=== PATIENT | male | born 1960 | race Caucasian/White ===

== ENCOUNTER 2022-12-08 08:26 | Outpatient (OUT) | payer BC, MEDICARE, SELFPAY ==
--- NOTE | 2022-12-08 07:54 | P.CN_ITS ---
Consult Note: HPI Data of Consult Patient: known to practice within the last 3 years Requesting Physician: Ashley Arroyo NP Primary Care Provider: MARIAJOSE GAY Consult Narrative Reason for consult: chronic knee and shoulder osteoarthritis Narrative: Brian Restrepo a pleasant 62 year old male presents for follow up on chronic bilateral knee and shoulder pain (R>L). Patient continues to have severe pain 7/10 in bilateral knees and right shoulder. Patient has failed PT as it causes an increase in his pain, is not a surgical candidate due to weight and finances, and has been denied Durolane knee injections by his insurance. Patient is seeking alternative pain relief measures as his pain is not relieved by conservative measures and current medication regimen. Patient is following with lymphedema clinic for BLE lymphedema. Patient denies current or recent infection, no cellulitis. Does have bandages to BLE. cc:: CC: Ashley Arroyo NP Review of Systems ROS Status of ROS 10 or more systems reviewed and unremarkable except as noted in history and below Musculoskeletal Reports: extremity pain, limited range of motion and joint swelling PFSH [facility] Medical History (Updated 12/08/22 @ 09:16 by Ashley Arroyo NP) Meds Home Medications and Allergies Home Medications Medication Instructions Recorded Confirmed Type naloxone 4 mg/actuation nasal 4 mg intranasal Q2M PRN opioid 12/08/22 Rx spray (Narcan) overdose #2 ea oxycodone-acetaminophen 7.5 mg-325 1 tab PO BID PRN pain #60 tabs 12/08/22 Rx mg tablet (Percocet) Exam Constitutional Documenting provider has reviewed patient's vital signs: yes Common normals: no apparent distress, oriented x3, healthy appearing, alert and well nourished Exam limitations: physical limitations (utilizes cane) General appearance: cooperative Nutritional appearance: obese [facility] Common normals: normocephalic, hearing grossly normal bilaterally and moist oral mucous membranes Head and scalp: normocephalic Eye Common normals: PERRL Pupil: PERRL Neck & C-Spine Common normals: full ROM General: normal visual inspection Chest Common normals: inspection of chest normal Respiratory Common normals: normal respiratory effort, no retractions and no use of accessory muscles Back & Pelvis Thoracic spine/upper back: ROM limited and pain with ROM Lumbar spine/lower back: ROM limited and pain with ROM Extremity Right upper extremity: shoulder joint (severely limited ROM to right shoulder, decrease in strength. ) Right lower extremity: knee joint (moderate limitation in ROM, enlarged joint. no redness/warmth/infection.) and lower leg (lymphedema ) Left lower extremity: knee joint (moderate limitation in ROM, enlarged joint. no redness/warmth/infection) and lower leg (lymphedema ) Other: severe osteoarthritis to bilateral knees and right shoulder per xray imaging, patient has consistent exam findings as listed above. Pain with weightbearing and nonweight bearing activities, limited ROM, enlarged joints Neuro Common normals: oriented x3, CN's II-XII intact bilaterally, moves all extremities, no focal motor deficits, no sensory deficits noted and deep tendon reflexes 2+ bilaterally Sensorium/orientation: alert Gait (neuro): antalgic Motor exam: strength abnormal (3/5 in BLE 3/5 in RUE 4/5 LUE) Psych Common normals: mental status grossly normal, thought process normal, cooperative, affect normal, speech normal and activity/motor behavior normal Speech: normal speech Thought process: normal thought process Assessment and Plan Assessment and Plan (1) Knee osteoarthritis: Assessment and Plan: bilateral genicular nerve blocks working towards bilateral thermal RFA of genicular nerves (2) Chronic pain syndrome: Assessment and Plan: Avoid NSAIDs with history of renal disease and on plavix (3) Obesity: Assessment and Plan: The patient was counseled that proper dietary changes and consistent participation in a home exercise plan can lead to weight loss. Weight loss can help to improve functionality in patients with chronic pain.? (4) Chronic prescription opiate use: Assessment and Plan: patient was taking oxycodone 5mg BID PRN for pain with mild relief. Patient reports these medications help him to be active with mild pain relief. Patient feels this current medication is no longer benefitting him as well as previously, alternatives discussed. Will change to oxycodone-acetaminophen 7.5- 325mg BID PRN for pain. Discussed and prescribed naloxone. I feel these medications are improving the patient's quality of life and allow them to tolerate activities of daily living as well as participate in recreational activity.? The patient does not report intolerable side effects. The patient is NOT opioid naive and non-pharmacologic and non-opioid treatment has failed to significantly relieve the patient's pain and improve functionality. The patient has a diagnosis that is related to a somatic or visceral pain etiology.? I reviewed with the patient the potential risks and side effects with the use of? opioid medications including but not limited to respiratory depression,? sedation, and even . I verified the patient has access to naloxone should? these effects occur. I advised the patient to avoid the use of any other? sedation substances including alcohol, THC, and benzodiazepines while? taking opioid medications due to the risk of compounding side effects and? detrimental outcomes. I reviewed the [employer], pain treatment agreement, urine? drug screen, and opioid start talking forms. The patient was advised to let? their family know they had Naloxone in case they would need to administer? the medication.? (5) Muscle spasm: Assessment and Plan: continue zanaflex 4mg TID Plan Patient has had >3 months of chronic bilateral knee pain failing conservative pain measures and not a candidate for NSAIDs due to renal disease and plavix, failed PT as it has increased his pain, is not a candidate for surgery due to weight and finances, and has been historically denied Durolane knee injections. Discussed risks vs benefits of genicular NB in hopes of RFA. Patient would like to proceed with bilateral genicular NB and work towards a thermal RFA. f/u after nerve block
== END 2022-12-08 08:27 | disposition home or self-care (01) ==
PROVIDERS: PCP Nurse Practitioner Family; Visit Provider Nurse Practitioner
DX: M17.0 Bilateral primary osteoarthritis of knee (principal); G89.4 Chronic pain syndrome; E66.9 Obesity, unspecified; Z79.899 Other long term (current) drug therapy
CPT/HCPCS: G0463

== ENCOUNTER 2022-12-12 14:42 | Outpatient (OUT) | payer BC, MEDICARE, SELFPAY | END 2022-12-12 14:43 | disposition home or self-care (01) | LOC: WC 14:42 | PROVIDERS: PCP Nurse Practitioner Family; Visit Provider Physician Assistant | DX: S80.822A Blister (nonthermal), left lower leg, initial encounter (principal); S80.821A Blister (nonthermal), right lower leg, initial encounter; R60.0 Localized edema; L97.812 Non-pressure chronic ulcer of other part of right lower leg with fat layer exposed; I87.313 Chronic venous hypertension (idiopathic) with ulcer of bilateral lower extremity; L97.822 Non-pressure chronic ulcer of other part of left lower leg with fat layer exposed | CPT/HCPCS: G0463 ==

== ENCOUNTER 2022-12-12 15:48 | Outpatient (OUT) | payer BC, MEDICARE, SELFPAY ==
[2022-12-12 16:05] LABS: Hematocrit 29.1 % (42.0-54.0); Hemoglobin 8.9 g/dL (14.0-18.0)
[2022-12-12 16:07] LABS: Bilirubin Urine NEGATIVE (NEGATIVE); Blood Urine NEGATIVE (NEGATIVE); Clarity Urine CLEAR (CLEAR); Color Urine YELLOW (YELLOW); Glucose Urine UA NEGATIVE (NEGATIVE); Ketones Urine NEGATIVE (NEGATIVE); Leukocyte Esterase Urine NEGATIVE (NEGATIVE); Nitrite Urine NEGATIVE (NEGATIVE); Protein Urine NEGATIVE (NEG/TRACE); Urobilinogen Urine 0.2 EU/dL (0.2-1.0)
[2022-12-12 16:25] LABS: Creatinine Urine Random 113.09 mg/dL (20.00-300.00); Protein Creatinine Ratio Urine 0.24; Total Protein Urine Random 27.2 mg/dL (<=11.9)
[2022-12-12 16:33] LABS: Alanine Aminotransferase 27 U/L (16-63); Albumin Globulin Ratio 0.8; Albumin Level 3.3 g/dL (3.4-5.0); Alkaline Phosphatase 121 U/L (46-116); Anion Gap 9.7; Aspartate Amino Transferase 16 U/L (15-37); BUN Creatinine Ratio 17.4; Bilirubin Total 0.3 mg/dL (0.2-1.0); Calcium 8.6 mg/dL (8.5-10.1); Carbon Dioxide 26.3 mmol/L (21.0-32.0); Chloride 106 mmol/L (98-107); Estimated GFR (African America 60 (>=60); Estimated GFR (Non-African Ame 49 (>=60); Globulin 4.1 g/dL; Glucose 121 mg/dL (74-106); Magnesium 1.9 mg/dL (1.8-2.4); Percent Iron Saturation 10.5 %; Phosphorus 4.2 mg/dL (2.6-4.7); Sodium 138 mmol/L (136-145); Total Protein 7.4 g/dL (6.4-8.2); Uric Acid 6.3 mg/dL (3.5-7.2)
[2022-12-13 12:09] LABS: PTH, Intact 62 pg/mL (15-65)
== END 2022-12-12 15:49 | disposition home or self-care (01) ==
LOC: LAB 15:48
PROVIDERS: PCP Nurse Practitioner Family; Visit Provider Internal Medicine Nephrology
DX: I12.9 Hypertensive chronic kidney disease with stage 1 through stage 4 chronic kidney disease, or unspecified chronic kidney disease (principal); M10.9 Gout, unspecified; D63.1 Anemia in chronic kidney disease; N40.0 Benign prostatic hyperplasia without lower urinary tract symptoms; E55.9 Vitamin D deficiency, unspecified; E87.6 Hypokalemia; E11.22 Type 2 diabetes mellitus with diabetic chronic kidney disease; R60.0 Localized edema; S80.822A Blister (nonthermal), left lower leg, initial encounter; S80.821A Blister (nonthermal), right lower leg, initial encounter; L97.812 Non-pressure chronic ulcer of other part of right lower leg with fat layer exposed; L97.822 Non-pressure chronic ulcer of other part of left lower leg with fat layer exposed; I87.313 Chronic venous hypertension (idiopathic) with ulcer of bilateral lower extremity
CPT/HCPCS: 36415; 80053; 81003; 82306; 82570; 82607; 82728; 82746; 83540; 83550; 83735; 83970; 84100; 84156; 84550; 85014; 85018; G0463

== ENCOUNTER 2022-12-23 13:46 | Outpatient (RCR) | payer BC, MEDICARE, SELFPAY | END 2023-03-07 15:17 | disposition home or self-care (01) | LOC: OT 13:46 | PROVIDERS: PCP Nurse Practitioner Family; Visit Provider Physician Assistant | DX: I89.0 Lymphedema, not elsewhere classified (principal) | CPT/HCPCS: 97140; 97167; 97535 ==

== ENCOUNTER 2023-01-02 12:50 | Outpatient (OUT) | payer BC, MEDICARE, SELFPAY | END 2023-01-02 12:51 | disposition home or self-care (01) | LOC: WC 12:50 | PROVIDERS: PCP Nurse Practitioner Family; Visit Provider Physician Assistant | DX: R60.0 Localized edema (principal); I87.311 Chronic venous hypertension (idiopathic) with ulcer of right lower extremity; L97.812 Non-pressure chronic ulcer of other part of right lower leg with fat layer exposed | CPT/HCPCS: G0463 ==

== ENCOUNTER 2023-01-09 11:16 | Outpatient (OUT) | payer BC, MEDICARE, SELFPAY | END 2023-01-09 11:17 | disposition home or self-care (01) | LOC: WC 11:17 | PROVIDERS: PCP Nurse Practitioner Family; Visit Provider Physician Assistant | DX: I87.313 Chronic venous hypertension (idiopathic) with ulcer of bilateral lower extremity (principal); L97.812 Non-pressure chronic ulcer of other part of right lower leg with fat layer exposed; L97.822 Non-pressure chronic ulcer of other part of left lower leg with fat layer exposed | CPT/HCPCS: G0463 ==

== ENCOUNTER 2023-01-18 13:36 | Outpatient (OUT) | payer BC, MEDICARE, SELFPAY | END 2023-01-18 13:37 | disposition home or self-care (01) | LOC: WC 13:36 | PROVIDERS: PCP Nurse Practitioner Family; Visit Provider Physician Assistant | DX: I87.311 Chronic venous hypertension (idiopathic) with ulcer of right lower extremity (principal); L97.812 Non-pressure chronic ulcer of other part of right lower leg with fat layer exposed | CPT/HCPCS: G0463 ==

== ENCOUNTER 2023-01-24 06:18 | Day surgery (SDC) | payer BC, MEDICARE, SELFPAY ==
[2023-01-24 06:30] VITALS: BP 125/57; PULSE 63; RESP 14; TEMP 36.9; O2SAT 97
[2023-01-24 07:12] LABS: Glucometer 190 mg/dL (74-106)
[2023-01-24] MEDS: BUPIVACAINE HCL 0.25% PF 25 MG/10 ML VIAL INJ (08:03)
[2023-01-24 08:11] VITALS: BP 128/60; BP 138/60; PULSE 56; PULSE 63; RESP 18; O2SAT 96; O2SAT 97
--- NOTE | 2023-01-24 08:53 | P.ON_ITS ---
Date of procedure: 01/24/23 Pre-op diagnosis: Bilateral knee osteoarthritis Post-op diagnosis: same as pre-op Procedure: Bilateral Genicular Nerve Block PREOPERATIVE DIAGNOSIS: Pain secondary to knee pain, osteoarthritis, osteoarthrosis/degenerative joint disease. POSTOPERATIVE DIAGNOSIS--the same. SOLUTION USED FOR INJECTION: Marcaine 0.25%. IMMEDIATE COMPLICATIONS: None. PROCEDURE: After informed consent was obtained from the patient, brought to the OR, placed in the supine position. Skin overlying the area was prepped and draped in sterile fashion. Subsequently, a 25 gauge spinal needle was inserted over the inferior medial genicular nerve. Landmarks were identified under fluoroscopy. Needle tip advanced until the desired location was achieved, at which point we ruled out intravascular or intraneural needle tip placement. 1 mL of solution was injected. This procedure was performed in a similar fashion at the superior medial and superior lateral branches of the genicular nerve. Throughout the procedure, no indication of intravascular or intraneural needle t ip placement or injection. Post procedurally, needle removed. Patient tolerated the procedure with no complications, transferred to the recovery room in stable condition. She will be discharged home after meeting criteria. Patient informed to keep a pain diary for the first two hours post procedurally. Anesthesia: Local Surgeon: Domi Johnston Condition: stable
== END 2023-01-24 08:19 | disposition home or self-care (01) ==
PROVIDERS: PCP Nurse Practitioner Family; Visit Provider Anesthesiology Pain Medicine
DX: M17.0 Bilateral primary osteoarthritis of knee (principal); Z79.4 Long term (current) use of insulin
CPT/HCPCS: 36415; 64454; 82948

== ENCOUNTER 2023-02-01 08:20 | Outpatient (OUT) | payer BC, MEDICARE, SELFPAY ==
--- NOTE | 2023-02-01 08:34 | P.CN_ITS ---
Consult Note: HPI Data of Consult Patient: known to practice within the last 3 years Requesting Physician: Ashley Arroyo NP Primary Care Provider: MARIAJOSE GAY Consult Narrative Reason for consult: chronic knee and shoulder osteoarthritis Narrative: Brian Restrepo a pleasant 62 year old male presents for follow up on chronic bilateral knee and shoulder pain (R>L). Patient continues to have severe pain 7/10 in bilateral knees and right shoulder. Patient has failed PT as it causes an increase in his pain, is not a surgical candidate due to weight and finances, and has been denied Durolane knee injections by his insurance. Patient is seeking alternative pain relief measures as his pain is not relieved by conservative measures and current medication regimen. Patient is following with lymphedema clinic for BLE lymphedema. Patient denies current or recent infection, no cellulitis. Does have bandages to BLE. Most recently underwent bilateral genicular nerve block with 100% pain relief and functional improvement for 2 hours following the procedure. Patient would like to discuss proceed with thermal RFA of bilateral genicular nerves. cc:: CC: Ashley Arroyo NP Review of Systems ROS Status of ROS 10 or more systems reviewed and unremarkable except as noted in history and below Musculoskeletal Reports: joint pain (bilateral knees) PFSH [facility] Medical History (Updated 01/16/23 @ 10:31 by Gabby Reynoso RN) A-fib ?I48.91 - Unspecified atrial fibrillation (ICD-10) Acid reflux ?K21.9 - Gastro-esophageal reflux disease without esophagitis (ICD-10) Anemia ?D64.9 - Anemia, unspecified (ICD-10) Chronic pain syndrome ?G89.4 - Chronic pain syndrome (ICD-10) COPD (chronic obstructive pulmonary disease) ?J44.9 - Chronic obstructive pulmonary disease, unspecified (ICD-10) Diabetes ?E11.9 - Type 2 diabetes mellitus without complications (ICD-10) Enlarged prostate ?N40.0 - Benign prostatic hyperplasia without lower urinary tract symptoms (ICD-10) Fibromyalgia ?M79.7 - Fibromyalgia (ICD-10) High cholesterol ?E78.00 - Pure hypercholesterolemia, unspecified (ICD-10) Kidney failure ?N19 - Unspecified kidney failure (ICD-10) Sleep apnea ?G47.30 - Sleep apnea, unspecified (ICD-10) Meds Home Medications and Allergies Home Medications Medication Instructions Recorded Confirmed Type naloxone 4 mg/actuation nasal 4 mg intranasal Q2M PRN opioid 12/08/22 01/24/23 Rx spray (Narcan) overdose #2 ea oxycodone-acetaminophen 7.5 mg-325 1 tab PO BID PRN pain #60 tabs 01/03/23 01/24/23 Rx mg tablet (Percocet) albuterol sulfate 90 mcg/actuation 2 puff inhalation Q4H PRN 01/16/23 01/24/23 History aerosol inhaler shortness of breath or wheezing allopurinol 100 mg tablet 100 mg PO DAILY 01/16/23 01/24/23 History apixaban 5 mg tablet (Eliquis) 5 mg PO Q12H 01/16/23 01/24/23 History aspirin 81 mg tablet,delayed 81 mg PO DAILY 01/16/23 01/24/23 History release (Adult Aspirin Regimen) atorvastatin 80 mg tablet (Lipitor) 80 mg PO DAILY 01/16/23 01/24/23 History bumetanide 1 mg tablet 1 mg PO DAILY 01/16/23 01/24/23 History carvedilol 25 mg tablet 37.5 mg PO Q12H 01/16/23 01/24/23 History clonidine HCl 0.2 mg tablet 0.2 mg PO TID 01/16/23 01/24/23 History ferrous sulfate 325 mg (65 mg 325 mg PO BID 01/16/23 01/24/23 History iron) tablet (FeroSul) hydralazine 100 mg tablet 100 mg PO Q8H 01/16/23 01/24/23 History insulin glargine 100 unit/mL 44 unit subcut BID 01/16/23 01/24/23 History subcutaneous solution (Lantus U-100 Insulin) lisinopril 10 mg tablet 20 mg PO DAILY 01/16/23 01/24/23 History montelukast 10 mg tablet 10 mg PO DAILY 01/16/23 01/24/23 History omeprazole 40 mg capsule,delayed 40 mg PO DAILY 01/16/23 01/24/23 History release pregabalin 100 mg capsule 100 mg PO Q12H 01/16/23 01/24/23 History sertraline 100 mg tablet (Zoloft) 100 mg PO DAILY 01/16/23 01/24/23 History tamsulosin 0.4 mg capsule 0.4 mg PO Q24H 01/16/23 01/24/23 History tiotropium 2.5 mcg-olodaterol 2.5 2 puff inhalation Q24H 01/16/23 01/24/23 History mcg/actuation mist for inhalation (Stiolto Respimat) tizanidine 4 mg tablet 4 mg PO Q8H 01/16/23 01/24/23 History vitamin [id number] factor 110 cap 01/16/23 History mg-0.5 mg capsule Allergies Allergy/AdvReac Type Severity Reaction Status Date / Time epoetin [place] [From Procrit] Allergy Verified 01/16/23 10:19 ertapenem [From Invanz] Allergy Verified 01/16/23 10:19 Penicillins Allergy Verified 01/16/23 10:19 Sulfa (Sulfonamide Allergy Verified 01/16/23 10:19 Antibiotics) Exam Constitutional Documenting provider has reviewed patient's vital signs: yes Common normals: no apparent distress, oriented x3, healthy appearing, alert and well nourished Exam limitations: physical limitations (utilizes cane) General appearance: cooperative Nutritional appearance: obese [facility] Common normals: normocephalic, hearing grossly normal bilaterally and moist oral mucous membranes Head and scalp: normocephalic Eye Common normals: PERRL Pupil: PERRL Neck & C-Spine Common normals: full ROM General: normal visual inspection Chest Common normals: inspection of chest normal Respiratory Common normals: normal respiratory effort, no retractions and no use of accessory muscles Back & Pelvis Thoracic spine/upper back: ROM limited and pain with ROM Lumbar spine/lower back: ROM limited and pain with ROM Extremity Right upper extremity: shoulder joint (severely limited ROM to right shoulder, decrease in strength. ) Right lower extremity: knee joint (moderate limitation in ROM, enlarged joint. no redness/warmth/infection.) and lower leg (lymphedema ) Left lower extremity: knee joint (moderate limitation in ROM, enlarged joint. no redness/warmth/infection) and lower leg (lymphedema ) Other: severe osteoarthritis to bilateral knees and right shoulder per xray imaging, patient has consistent exam findings as listed above. Pain with weightbearing and nonweight bearing activities, limited ROM, enlarged joints Neuro Common normals: oriented x3, CN's II-XII intact bilaterally, moves all extremities, no focal motor deficits, no sensory deficits noted and deep tendon reflexes 2+ bilaterally Sensorium/orientation: alert Gait (neuro): antalgic and assistive device used cane Motor exam: strength 5/5 throughout and no movement abnormalities noted Psych Common normals: mental status grossly normal, thought process normal, cooperative, affect normal, speech normal and activity/motor behavior normal Speech: normal speech Thought process: normal thought process Results Additional Findings Additional findings: I have checked an [place]AR[place] report on this patient today and there are no aberrancies noted in the prescribing history.?? A drug screen was completed and reviewed within the last year, and if there has not been a drug screen completed we ordered one today to monitor higher risk, state monitored pain medication use. As part of providing excellent, safe, comprehensive care, the following was completed at our patient's visit: 1. A medication reconciliation and review to ensure accurate knowledge of current/active medications, including asking our patients to inform us about any [id number] medications or herbal remedies/nutritional supplements/alternative remedies. 2. A review to specifically ensure our patients have had annual screening for: elevated body mass index (BMI), tobacco use, screening for depression, and screening for unhealthy alcohol use. When screening is concerning, patients are provided with education and the specific recommendation to discuss the concerning health issue and treatment options with their primary care provider. The patient has had over 3 months of moderate to severe bilateral knee pain with functional impairment and inadequate response to conservative care including NSAIDS (unless there are contraindication such as concurrent blood thinners), multiple oral or topical pain medications, and home exercise program/physical therapy.? The Oswestry Disability Index was completed, and the patient scored a 58%.? The patient noted the following:??moderate pain, pain with ADLs, pain prevents him from lifting heavy weights, can only walk using a cane or walking stick, pain prevents him from standing more than 10 minutes, pain impacts sleep causing less than 4 hours, pain impacts social life and travel We discussed the risks and benefits of the procedure with the patient, and we are NOT planning on using sedation as outlined in the guidelines from Medicare unless there is a documented reason that sedation would be strongly recommended.?? ?The procedure will be completed with fluoroscopic guidance.? Assessment and Plan Assessment and Plan (1) Knee osteoarthritis: (2) Chronic pain syndrome: Assessment and Plan: Avoid NSAIDs with history of renal disease and on plavix (3) Obesity: Assessment and Plan: The patient was counseled that proper dietary changes and consistent participation in a home exercise plan can lead to weight loss. Weight loss can help to improve functionality in patients with chronic pain.? (4) Chronic prescription opiate use: Assessment and Plan: continue percocet 7.5mg BID PRN, will discuss wean or decrease after genicular RFAs I feel these medications are improving the patient's quality of life and allow them to tolerate activities of daily living as well as participate in recreational activity.? The patient does not report intolerable side effects. The patient is NOT opioid naive and non-pharmacologic and non-opioid treatment has failed to significantly relieve the patient's pain and improve functionality. The patient has a diagnosis that is related to a somatic or visceral pain etiology.? I reviewed with the patient the potential risks and side effects with the use of? opioid medications including but not limited to respiratory depression,? sedation, and even . I verified the patient has access to naloxone should? these effects occur. I advised the patient to avoid the use of any other? sedation substances including alcohol, THC, and benzodiazepines while? taking opioid medications due to the risk of compounding side effects and? detrimental outcomes. I reviewed the [employer], pain treatment agreement, urine? drug screen, and opioid start talking forms. The patient was advised to let? their family know they had Naloxone in case they would need to administer? the medication.? (5) Muscle spasm: Assessment and Plan: continue zanaflex 4mg TID Plan Patient has had >3 months of chronic bilateral knee pain failing conservative pain measures and not a candidate for NSAIDs due to renal disease and plavix, failed PT as it has increased his pain, is not a candidate for surgery due to weight and finances, and has been historically denied Durolane knee injections. Proceed with bilateral thermal RFA of genicular nerves under fluoroscopy continue current medications, tolerating well without side effect f/u 1 month after procedure
== END 2023-02-01 08:21 | disposition home or self-care (01) ==
PROVIDERS: PCP Nurse Practitioner Family; Visit Provider Nurse Practitioner
DX: M17.0 Bilateral primary osteoarthritis of knee (principal); G89.4 Chronic pain syndrome; E66.9 Obesity, unspecified; Z79.899 Other long term (current) drug therapy
CPT/HCPCS: G0463

== ENCOUNTER 2023-02-03 11:44 | Outpatient (OUT) | payer BC, MEDICARE, SELFPAY | END 2023-02-03 11:45 | disposition home or self-care (01) | LOC: WC 11:44 | PROVIDERS: PCP Nurse Practitioner Family; Visit Provider Podiatrist Foot & Ankle Surgery | DX: I87.312 Chronic venous hypertension (idiopathic) with ulcer of left lower extremity (principal); L97.822 Non-pressure chronic ulcer of other part of left lower leg with fat layer exposed | CPT/HCPCS: 11042 ==

== ENCOUNTER 2023-02-13 09:13 | Day surgery (SDC) | payer BC, MEDICARE, SELFPAY ==
[2023-02-13 09:30] VITALS: BP 144/53; PULSE 61; RESP 16; TEMP 36.9; O2SAT 94
[2023-02-13 09:41] LABS: Glucometer 125 mg/dL (74-106)
[2023-02-13 10:18] VITALS: BP 120/53; PULSE 65; RESP 18; O2SAT 98
[2023-02-13] MEDS: TRIAMCINOLONE ACETONIDE 40 MG/ML VIAL 80 MG INJ (10:23)
[2023-02-13] MEDS: BUPIVACAINE HCL 0.25% PF 25 MG/10 ML VIAL 4 ML INJ (10:23)
[2023-02-13] MEDS: LIDOCAINE HCL 2% 400 MG/20 ML MDV 30 ML INJ (10:23)
[2023-02-13 10:25] VITALS: BP 140/63; PULSE 64; RESP 18; O2SAT 98
--- NOTE | 2023-02-13 10:42 | W.PM.PROCNOT ---
Date of procedure: 02/13/23 Pre-op diagnosis: Bilateral knee osteoarthritis Post-op diagnosis: same as pre-op Procedure: Procedure: Bilateral genicular nerve radiofrequency ablation Medications: Bupivacaine 0.25% 6cc, kenalog 40mg, lidocaine 2% 15cc The patient was taken to the procedures suite and positioned in the supine position. I explained the details of the procedure to the patient including the risks, benefits and alternatives. We had an informed discussion and the patient verbalized understanding and signed the consent form. All questions were answered appropriately.? ? A 'time out' procedure was performed. The patient was identified, the chart was reviewed, and all allergies were confirmed. Laterality was conducted and marked. The left knee was marked with a sterile marking pen, prepped with Chloraprep, and sterilely draped.? Under fluoroscopic guidance, branches of the genicular nerves were localized.? First the superior medial genicular nerve was localized where the femoral shaft meets the medial epicondyle.? Skin was anesthetized with 1% lidocaine (only the superficial areas far from osseous contact).? The appropriate level of insertion was identified by placing a hemostat over the knee and obtaining an AP view. An 18-gauge 10 mm active tip 3.5 in needle was advanced in a coaxial manner in the lateral view at 1/2 the depth of the femur which was identified by placing forceps over the skin in the lateral view.? This was repeated on the superior lateral genicular nerve where the femoral shaft meets the lateral epicondyle and the inferior medial genicular nerve where the medial tibal shaft meets the tibial epicondyle (needle was advanced to half the depth of the tibia).? Needle placement was confirmed with a lateral view in all sites, after negative aspiration, 1cc of 2% lidocaine was injected at each of the three sites. ? Sensory testing was completed at 0.5 V at each level and motor testing was negative at 1.5 V for all 3 levels. Each of the sites were lesioned for 80 degrees at 80 seconds, with impedance < 500. The probes were subsequently removed and the sites of insertion were bandaged. The same procedure, with the same steps, was then completed on the right side. The patient was taken to the postoperative area and discharged in good condition. Anesthesia: Local Surgeon: Sonja Peguero Pathology: none sent Condition: stable Disposition: no change
== END 2023-02-13 10:51 | disposition home or self-care (01) ==
PROVIDERS: PCP Nurse Practitioner Family; Visit Provider Anesthesiology
DX: M17.0 Bilateral primary osteoarthritis of knee (principal)
CPT/HCPCS: 36415; 36416; 64624; 82948

== ENCOUNTER 2023-03-06 14:20 | Observation (INO) | payer BC, MEDICARE, SELFPAY ==
[2023-03-06] VITALS (13 sets, daily range): BP systolic 127–195; BP diastolic 59–76; PULSE 69–86; RESP 16–20; TEMP 37.1–37.3; O2SAT 79–96; BMI 53.2; BMI 53.6
--- NOTE | 2023-03-06 14:31 | ED_ITS ---
HPI - Back Pain/Injury General Chief Complaint: Back Pain/Injury Stated Complaint: BACK PAIN Time Seen by Provider: 03/06/23 14:21 Source: patient Mode of arrival: ambulance Limitations: no limitations History of Present Illness HPI Narrative: patient is a 62-year-old male with a history of chronic pain who presents to the emergency department by ambulance for a thirty minute history of back spasms across the lumbar spine. Patient was leaving a physical therapy appointment for his knees, he states he usually gets back spasms with physical therapy but today they were significantly worse and did not let up with heat or stretching. He denies any new pain radiation into the lower extremities, no numbness or tingling. He denies any urinary or stool incontinence. He had no falls or injuries. Patient is morbidly obese, he takes Percocet 7.5 mg twice a day chronically for pain. He sees pain management typically for his knees. Related Data Home Medications Medication Instructions Recorded Confirmed albuterol sulfate 90 mcg/actuation 2 puff inhalation Q4H PRN 01/16/23 02/13/23 aerosol inhaler shortness of breath or wheezing allopurinol 100 mg tablet 100 mg PO DAILY 01/16/23 02/13/23 apixaban 5 mg tablet (Eliquis) 5 mg PO Q12H 01/16/23 02/13/23 aspirin 81 mg tablet,delayed 81 mg PO DAILY 01/16/23 02/13/23 release (Adult Aspirin Regimen) atorvastatin 80 mg tablet (Lipitor) 80 mg PO DAILY 01/16/23 02/13/23 bumetanide 1 mg tablet 1 mg PO DAILY 01/16/23 02/13/23 carvedilol 25 mg tablet 37.5 mg PO Q12H 01/16/23 02/13/23 clonidine HCl 0.2 mg tablet 0.2 mg PO TID 01/16/23 02/13/23 ferrous sulfate 325 mg (65 mg 325 mg PO BID 01/16/23 02/13/23 iron) tablet (FeroSul) hydralazine 100 mg tablet 100 mg PO Q8H 01/16/23 02/13/23 insulin glargine 100 unit/mL 44 unit subcut BID 01/16/23 02/13/23 subcutaneous solution (Lantus U-100 Insulin) lisinopril 10 mg tablet 20 mg PO DAILY 01/16/23 02/13/23 montelukast 10 mg tablet 10 mg PO DAILY 01/16/23 02/13/23 omeprazole 40 mg capsule,delayed 40 mg PO DAILY 01/16/23 02/13/23 release pregabalin 100 mg capsule 100 mg PO Q12H 01/16/23 02/13/23 sertraline 100 mg tablet (Zoloft) 100 mg PO DAILY 01/16/23 02/13/23 tamsulosin 0.4 mg capsule 0.4 mg PO Q24H 01/16/23 02/13/23 tiotropium 2.5 mcg-olodaterol 2.5 2 puff inhalation Q24H 01/16/23 02/13/23 mcg/actuation mist for inhalation (Stiolto Respimat) tizanidine 4 mg tablet 4 mg PO Q8H 01/16/23 02/13/23 vitamin C52-unxgjtkeg factor 110 cap 01/16/23 mg-0.5 mg capsule Previous Rx's Medication Instructions Recorded naloxone 4 mg/actuation nasal 4 mg intranasal Q2M PRN opioid 12/08/22 spray (Narcan) overdose #2 ea oxycodone-acetaminophen 7.5 mg-325 1 tab PO BID PRN pain #60 tabs 01/03/23 mg tablet (Percocet) oxycodone-acetaminophen 7.5 mg-325 1 tab PO BID PRN pain #60 tabs 02/01/23 mg tablet (Percocet) oxycodone-acetaminophen 7.5 mg-325 1 tab PO BID PRN pain #60 tabs 03/06/23 mg tablet (Percocet) Allergies Allergy/AdvReac Type Severity Reaction Status Date / Time epoetin [place] [From Procrit] Allergy Verified 02/13/23 09:44 ertapenem [From Invanz] Allergy Verified 02/13/23 09:44 Penicillins Allergy Verified 02/13/23 09:44 Sulfa (Sulfonamide Allergy Verified 02/13/23 09:44 Antibiotics) Review of Systems ROS Constitutional Denies: fever or chills Cardiovascular Denies: chest pain Respiratory Denies: shortness of breath Gastrointestinal Denies: abdominal pain, nausea or vomiting Musculoskeletal Reports: back pain, extremity pain and joint pain; Denies: neck pain Integumentary/Breast Denies: rash Neurological Denies: headache Hematologic/Lymphatic Denies: easy bruising [facility] Medical History (Updated 03/06/23 @ 16:04 by BERNADINE Lima) A-fib ?I48.91 - Unspecified atrial fibrillation (ICD-10) Acid reflux ?K21.9 - Gastro-esophageal reflux disease without esophagitis (ICD-10) Anemia ?D64.9 - Anemia, unspecified (ICD-10) Chronic pain syndrome ?G89.4 - Chronic pain syndrome (ICD-10) COPD (chronic obstructive pulmonary disease) ?J44.9 - Chronic obstructive pulmonary disease, unspecified (ICD-10) Diabetes ?E11.9 - Type 2 diabetes mellitus without complications (ICD-10) Enlarged prostate ?N40.0 - Benign prostatic hyperplasia without lower urinary tract symptoms (ICD-10) Fibromyalgia ?M79.7 - Fibromyalgia (ICD-10) High cholesterol ?E78.00 - Pure hypercholesterolemia, unspecified (ICD-10) Kidney failure ?N19 - Unspecified kidney failure (ICD-10) Sleep apnea ?G47.30 - Sleep apnea, unspecified (ICD-10) Social History Smoking status: Former smoker Exam Narrative Exam Narrative: Gen.: Awake, alert, in no distress Head: Normocephalic, atraumatic ENT: Moist mucous membranes Respiratory: No respiratory distress Back: diffuse tenderness of the lumbar spine, no obvious deformity or step-off. Paraspinal muscle tenderness bilaterally. Extremities: Moves extremities equally, no injuries noted; normal dorsiflexion and plantarflexion of the lower extremities, no decreasse in sensation to the medial thighs Psych: Normal mood and affect Neuro: No focal neuro deficit Skin: Warm, dry, intact Constitutional Vital Signs, click to edit/add: Last Vital Signs Temp 98.8 F 03/06/23 14:22 Pulse 85 03/06/23 14:22 Resp 20 03/06/23 14:22 BP 142/59 H 03/06/23 14:22 Pulse Ox 84 L 03/06/23 14:55 O2 Del Method Room Air 03/06/23 14:55 O2 Flow Rate 3 03/06/23 14:55 Course Vital Signs Vital signs: Vital Signs Temperature 98.8 F 03/06/23 14:22 Pulse Rate 85 03/06/23 14:22 Respiratory Rate 20 03/06/23 14:22 Blood Pressure 142/59 H 03/06/23 14:22 Pulse Oximetry 95 03/06/23 14:22 Oxygen Delivery Method Room Air 03/06/23 14:22 Temperature 98.8 F 03/06/23 14:22 Pulse Rate 85 03/06/23 14:22 Respiratory Rate 20 03/06/23 14:22 Blood Pressure 142/59 H 03/06/23 14:22 Pulse Oximetry 84 L 03/06/23 14:55 Oxygen Delivery Method Room Air 03/06/23 14:55 Oxygen Delivery Flow Rate 3 03/06/23 14:55 MDM - Back Pain/Injury MDM Narrative Medical decision making narrative: patient was treated with Dilaudid, Solu-Medrol, Zofran, Norflex. He did become mildly drowsy and oxygen by nasal cannula was placed for comfort, he has no lethargy or unresponsiveness. He is easily arousable with no tachycardia or abnormal vital signs. He was reevaluated by attending physician, he has no radicular symptoms or focal neuro deficits, the patient continues to be in 10/10 pain. He is unable to ambulate and we are unable to send him home. Contacted Dr. Castaneda, his PCP who will admit the patient for observation and pain control with therapy. Stable at time of admission. CT of the lumbar spine was ordered to rule out significant abnormal pathology. Medical Records Attestation: I reviewed the patient's medical records. Discharge Plan Discharge Chief Complaint: Back Pain/Injury Patient Disposition: Admitted as Observation Time of Disposition Decision: 16:04 Prescriptions / Home Meds: No Action naloxone [Narcan] 4 mg/actuation spray,non-aerosol 4 mg intranasal Q2M PRN (Reason: opioid overdose) Qty: 2 0RF Rx Instructions: spray 1 dose into ONE nostril; alternate nostrils w each dose until help arrives oxycodone-acetaminophen [Percocet] 7.5-325 mg tablet 1 tab PO BID PRN (Reason: pain) Qty: 60 0RF oxycodone-acetaminophen [Percocet] 7.5-325 mg tablet 1 tab PO BID PRN (Reason: pain) Qty: 60 0RF oxycodone-acetaminophen [Percocet] 7.5-325 mg tablet 1 tab PO BID PRN (Reason: pain) Qty: 60 0RF albuterol sulfate 90 mcg/actuation HFA aerosol inhaler 2 puff INHALATION Q4H PRN (Reason: shortness of breath or wheezing) allopurinol 100 mg tablet 100 mg PO DAILY Eliquis 5 mg tablet 5 mg PO Q12H aspirin [Adult Aspirin Regimen] 81 mg tablet,delayed release (DR/EC) 81 mg PO DAILY bumetanide 1 mg tablet 1 mg PO DAILY clonidine HCl 0.2 mg tablet 0.2 mg PO TID carvedilol 25 mg tablet 37.5 mg PO Q12H ferrous sulfate [FeroSul] 325 mg (65 mg iron) tablet 325 mg PO BID tamsulosin 0.4 mg capsule 0.4 mg PO Q24H insulin glargine [Lantus U-100 Insulin] 100 unit/mL solution 44 unit subcut BID atorvastatin [Lipitor] 80 mg tablet 80 mg PO DAILY montelukast 10 mg tablet 10 mg PO DAILY Stiolto Respimat 2.5-2.5 mcg/actuation mist 2 puff INHALATION Q24H vitamin L10-bzpwonayj factor 110-0.5 mg capsule tizanidine 4 mg tablet 4 mg PO Q8H sertraline [Zoloft] 100 mg tablet 100 mg PO DAILY hydralazine 100 mg tablet 100 mg PO Q8H lisinopril 10 mg tablet 20 mg PO DAILY omeprazole 40 mg capsule,delayed release(DR/EC) 40 mg PO DAILY pregabalin 100 mg capsule 100 mg PO Q12H Referrals: MARIAJOSE GAY [Primary Care Provider] - 1 week
[2023-03-06] MEDS: ORPHENADRINE 60 MG/ 2 ML VIAL IV ×2 (14:39→20:28)
[2023-03-06] MEDS: METHYLPREDNISOLONE SOD SUCC PF 125 MG/2 ML VIAL IVP ×2 (14:39→20:28)
[2023-03-06] MEDS: HYDROMORPHONE HCL 1 MG/ML CARTRIDGE IV (14:39)
[2023-03-06] MEDS: ONDANSETRON PF 4 MG/2 ML VIAL IV (14:39)
--- NOTE | 2023-03-06 14:55 | PC.NURSE ---
PT HAS HX SLEEP APNEA. PT RECEIVED 1 MG DILAUDID FOR BACK PAIN AND UPON DOZING OFF MO SPO2 DROPPED AND PT WAS PLACED ON SUPPLEMENTAL O2
--- NOTE | 2023-03-06 15:49 | CT_ITS ---
The [address] [address] Patient Name: DENNY BRADY MRN: [id number] date: 1960 Sex: M Assigned Patient Location: ER Current Patient Location: [place] Accession/Order Number: [id number] Exam Date: 03/06/2023 16:25 Report Date: 03/06/2023 16:52 At the request of: LORIN LORENZO Procedure: CT lumbar spine wo con EXAM: CT lumbar spine wo con HISTORY: low back pain COMPARISON: None. TECHNIQUE: CT lumbar spine without contrast. Multiplanar reformats obtained. The current study utilizes one or more of the following dose-reduction techniques: automated exposure control, iterative reconstruction, and/or manual adjustment of tube current and voltage for size. FINDINGS: Severe motion degradation. Suspect L4 inferior endplate deformity with up to 50% height loss. L1 superior endplate deformity with approximately 20% height loss. No definitive traumatic malalignment, though difficult to exclude given significant motion degradation. Severe lower lumbar facet arthropathy. Nondiagnostic evaluation of the spinal canal and neural foramen. Cholelithiasis. No convincing paravertebral edema. CT/CT lumbar spine wo con IMPRESSION: Severe motion degradation. Repeat examination recommended when patient is better able to tolerate. There is question of an L4 inferior endplate deformity with approximately 50% height loss. Question of an L1 superior endplate deformity with approximately 20% height loss. Electronically authenticated by: TAMMY LINARES Date: 03/06/2023 16:52
[2023-03-06] MEDS: IPRATROPIUM/ALBUTEROL SULFATE 3 ML AMPUL.NEB IH ×2 (17:21→23:19)
--- NOTE | 2023-03-06 17:28 | RESP.RT ---
Pt arrived from ER on 2L NC @ 80%. Increased to 6L and titrated down to 4L
--- NOTE | 2023-03-06 18:07 | CT_ITS ---
The [address] [address] Patient Name: DENNY BRADY MRN: [id number] date: 1960 Sex: M Assigned Patient Location: [place] Current Patient Location: Accession/Order Number: [id number] Exam Date: 03/06/2023 19:35 Report Date: 03/06/2023 20:57 At the request of: BETH HERCULES Procedure: CT angio chest EXAMINATION:CT angio chest INDICATION:hypoxia COMPARISON:None TECHNIQUE:Thin section transaxial slices were acquired through the chest. Coronal and sagittal reconstructed images were reviewed. IV CONTRAST:With FINDINGS: There is image degradation on this examination due to body habitus of the patient and significant breathing motion artifact. LUNGS: Evaluation for subtle nodules is suboptimal. Atelectasis is present in the lower lobes. PLEURAL CAVITY: No sizable pleural effusions are appreciated. MEDIASTINUM: Grossly unremarkable. HEART: No right heart strain. Coronary artery calcifications are present. VASCULAR:Evaluation for pulmonary embolism suboptimal due to breathing motion artifact. There is atherosclerotic plaque in the thoracic aorta. There is no definitive aneurysm of the thoracic aorta. There is breathing motion artifact which is causing image degradation for evaluation of dissection. LYMPH NODES:No obvious mediastinal lymphadenopathy. CHEST WALL/AXILLA: Chest wall and axilla are unremarkable. BONES: Evaluation of the osseous structures and the bony thorax is suboptimal. VISUALIZED UPPER ABDOMEN: Upper abdominal structures are unremarkable. CT/CT angio chest IMPRESSION: This examination of the chest is technically suboptimal due to extensive breathing motion artifact. Evaluation for pulmonary embolism and thoracic aortic dissection is suboptimal. There is minimal bibasilar atelectasis in the lung parenchyma. No sizable parenchymal infiltrates are present. Electronically authenticated by: TORRI ODOM Date: 03/06/2023 20:57
--- NOTE | 2023-03-06 18:20 | RESP.RT ---
Place pt on home cpap unit with 4L 02 bleed in at this time due to pt being SOB. Sp02 95%.
[2023-03-06 18:40] LABS: ABG PCO2 49.1 mmHg (35.0-45.0); Allen Test POSITIVE (POSITIVE); Base Excess ABG 0.9 mmol/L (-2.0-2.0); HCO3 ABG 26.6 mmol/L (22.0-26.0); Oxygen Saturation ABG 96.9 %; PO2 ABG 88.3 mmHg (80.0-100.0); pH ABG 7.342 (7.350-7.450)
[2023-03-06 18:41] LABS: Liters per Minute 4; Puncture Site LR
[2023-03-06 18:58] LABS: Basophils Percent Auto 0.1 % (0.2-2.0); Hematocrit 32.1 % (42.0-54.0); Hemoglobin 9.5 g/dL (14.0-18.0); Immature Granulocytes Abs Auto 0.03 10^3/uL (0.00-0.03); Immature Granulocytes Pct Auto 0.3 % (0.0-0.5); Lymphocytes Absolute Auto 0.2 10^3/uL (1.2-3.8); Mean Corpuscular HGB Conc 29.6 g/dL (29.9-35.2); Mean Corpuscular Volume 87.9 fL (80.0-94.0); Mean Platelet Volume 10.3 fL (9.5-13.5); Monocytes Absolute Auto 0.3 10^3/uL (0.3-0.8); Monocytes Percent Auto 2.8 % (1.7-12.0); Neutrophils Percent Auto 94.8 % (43.0-75.0); Platelet Count 169 10^3/uL (150-450); Red Blood Count 3.65 10^6/uL (4.70-6.10); Red Cell Distribution Width 16.6 % (11.0-15.0); White Blood Count 11.6 10^3/uL (4.0-11.0)
--- NOTE | 2023-03-06 19:00 | P.HP_ITS ---
H&P: HPI History of Present Illness Chief complaint: BACK PAIN INTRACTABLE LOW BACK PAIN Narrative: Patient with a history of low back pain presented to the emergency room with increasing low back pain. Given couple medications in the emergency room which resulted in significant hypoxia. Unable to improve in the emergency room and patient with pain not improved either she was admitted for observation Review of Systems ROS Status of ROS 10 or more systems reviewed and unremarkable except as noted in history and below [facility] Medical History (Updated 03/06/23 @ 16:04 by BERNADINE Lima) A-fib ?I48.91 - Unspecified atrial fibrillation (ICD-10) Acid reflux ?K21.9 - Gastro-esophageal reflux disease without esophagitis (ICD-10) Anemia ?D64.9 - Anemia, unspecified (ICD-10) Chronic pain syndrome ?G89.4 - Chronic pain syndrome (ICD-10) COPD (chronic obstructive pulmonary disease) ?J44.9 - Chronic obstructive pulmonary disease, unspecified (ICD-10) Diabetes ?E11.9 - Type 2 diabetes mellitus without complications (ICD-10) Enlarged prostate ?N40.0 - Benign prostatic hyperplasia without lower urinary tract symptoms (ICD-10) Fibromyalgia ?M79.7 - Fibromyalgia (ICD-10) High cholesterol ?E78.00 - Pure hypercholesterolemia, unspecified (ICD-10) Kidney failure ?N19 - Unspecified kidney failure (ICD-10) Sleep apnea ?G47.30 - Sleep apnea, unspecified (ICD-10) Surgical History (Updated 03/06/23 @ 17:09 by Hui Peralta LPN) History of arthroplasty of right shoulder ?Z96.611 - Presence of right artificial shoulder joint (ICD-10) History of hernia repair ?Z98.890 - Other specified postprocedural states (ICD-10) ?Z87.19 - Personal history of other diseases of the digestive system (ICD-10) History of right hip replacement ?Z96.641 - Presence of right artificial hip joint (ICD-10) Family History (Updated 03/06/23 @ 17:03 by Hui Peralta LPN) Brother Family history of cancer Social History (Updated 03/06/23 @ 17:08 by Hui Peralta LPN) Within the past year, how often did you have a drink containing alcohol: monthly or less Within the past year, how many standard drinks containing alcohol did you have on a typical day: 1 or 2 Within the past year, how often did you have six or more drinks on one occasion: never Total score: 0 Score interpretation: A score less than 4 is consistent with normal alcohol consumption. Smoking status: Former smoker Second hand tobacco smoke exposure: No Non-prescribed substance use: denies use Known occupational exposures/hazards: No Highest level of school completed/degree received: some college, no degree Do you want help with school or training: No Are you now , , , , never or living with a partner: In a typical week, how many times do you talk on the telephone with family, friends, or neighbors: twice per week How often do you get together with friends or relatives: twice per week How often do you attend adventist or taoism services: never Do you belong to any clubs or organizations such as adventist groups unions, [employer] or athletic groups, or school groups: yes Total score: 3 Score interpretation: A score of greater than or equal to 2 indicates the lowest level of social isolation. Little interest or pleasure in doing things: not at all Feeling down, depressed, or hopeless: not at all Feel stressed/tense/nervous/anxious/difficulty sleeping: not at all Due to disability, difficulty making decisions: No Do you think of yourself as: straight/heterosexual Gender Identity: male Meds Home Medications and Allergies Home Medications Medication Instructions Recorded Confirmed Type naloxone 4 mg/actuation nasal 4 mg intranasal Q2M PRN opioid 12/08/22 03/06/23 Rx spray (Narcan) overdose #2 ea albuterol sulfate 90 mcg/actuation 2 puff inhalation Q4H PRN 01/16/23 03/06/23 History aerosol inhaler shortness of breath or wheezing allopurinol 100 mg tablet 100 mg PO DAILY 01/16/23 03/06/23 History apixaban 5 mg tablet (Eliquis) 5 mg PO Q12H 01/16/23 03/06/23 History aspirin 81 mg tablet,delayed 81 mg PO DAILY 01/16/23 03/06/23 History release (Adult Aspirin Regimen) atorvastatin 80 mg tablet (Lipitor) 80 mg PO DAILY 01/16/23 03/06/23 History bumetanide 1 mg tablet 1 mg PO DAILY 01/16/23 03/06/23 History carvedilol 25 mg tablet 37.5 mg PO Q12H 01/16/23 03/06/23 History clonidine HCl 0.2 mg tablet 0.2 mg PO TID 01/16/23 03/06/23 History ferrous sulfate 325 mg (65 mg 325 mg PO BID 01/16/23 03/06/23 History iron) tablet (FeroSul) hydralazine 100 mg tablet 100 mg PO Q8H 01/16/23 03/06/23 History insulin glargine 100 unit/mL 44 unit subcut BID 01/16/23 03/06/23 History subcutaneous solution (Lantus U-100 Insulin) lisinopril 10 mg tablet 20 mg PO DAILY 01/16/23 03/06/23 History montelukast 10 mg tablet 10 mg PO DAILY 01/16/23 03/06/23 History omeprazole 40 mg capsule,delayed 40 mg PO DAILY 01/16/23 03/06/23 History release pregabalin 100 mg capsule 100 mg PO Q12H 01/16/23 03/06/23 History sertraline 100 mg tablet (Zoloft) 150 mg PO DAILY 01/16/23 03/06/23 History tamsulosin 0.4 mg capsule 0.4 mg PO Q24H 01/16/23 03/06/23 History tiotropium 2.5 mcg-olodaterol 2.5 2 puff inhalation Q24H 01/16/23 03/06/23 History mcg/actuation mist for inhalation (Stiolto Respimat) tizanidine 4 mg tablet 4 mg PO QDAY 01/16/23 03/06/23 History vitamin X48-jwhnjvrxm factor 110 1 cap PO DAILY 01/16/23 03/06/23 History mg-0.5 mg capsule oxycodone-acetaminophen 7.5 mg-325 1 tab PO BID PRN pain #60 tabs 02/01/23 03/06/23 Rx mg tablet (Percocet) tizanidine 4 mg tablet 8 mg PO .QHS 03/06/23 03/06/23 History Allergies Allergy/AdvReac Type Severity Reaction Status Date / Time epoetin [place] [From Procrit] Allergy Verified 02/13/23 09:44 ertapenem [From Invanz] Allergy Verified 10/23/23 09:44 Penicillins Allergy Verified 02/13/23 09:44 Sulfa (Sulfonamide Allergy Verified 02/13/23 09:44 Antibiotics) Exam Constitutional Vital Signs, click to edit/add: Last Vital Signs Temp 98.5 F 03/07/23 05:26 Pulse 72 03/07/23 06:00 Resp 18 03/07/23 05:26 BP 155/60 H 03/07/23 05:39 Pulse Ox 94 L 03/07/23 06:00 O2 Del Method CPAP 03/07/23 05:26 O2 Flow Rate 4 03/07/23 05:26 Documenting provider has reviewed patient's vital signs: yes Common normals: apparent distress General appearance: in distress; not comfortable Nutritional appearance: obese Chest Common normals: inspection of chest normal Respiratory Common normals: normal respiratory effort and no use of accessory muscles Cardio Common normals: regular rate, regular rhythm and no murmurs Back & Pelvis Lumbar spine/lower back: ROM limited, pain with ROM, paraspinal muscle tenderness, straight leg raise positive right and straight leg raise positive left; no lumbar spinal tenderness Results Labs Labs: Short CBC 03/06/23 Range/Units 18:47 WBC 11.6 H (4.0-11.0) 10^3/uL Hgb 9.5 L (14.0-18.0) g/dL Hct 32.1 L (42.0-54.0) % Plt Count 169 (150-450) 10^3/uL BMP 03/06/23 03/07/23 18:47 05:24 Sodium 138 138 Potassium 4.6 4.6 Chloride 104 103 Carbon Dioxide 27.2 23.5 BUN 27.0 H 32.0 H Creatinine 1.20 1.20 Glucose 90 166 H Calcium 8.6 8.7 Liver Function 03/06/23 03/07/23 Range/Units 18:47 05:24 Total Bilirubin 0.5 0.5 (0.2-1.0) mg/dL AST 17 18 (15-37) U/L ALT 27 24 (16-63) U/L Alkaline Phosphatase 112 102 (46-116) U/L Albumin 3.3 L 2.9 L (3.4-5.0) g/dL Urine 03/07/23 Range/Units 03:10 Urine Color Yellow (YELLOW) Urine Clarity Clear (CLEAR) Urine pH 5.5 (5.0-9.0) Ur Specific [place] 1.015 (1.005-1.025) Urine Protein 30 A (NEG/TRACE) mg/dL Urine Glucose (UA) Negative (NEGATIVE) mg/dL ABG ABG results: 03/06/23 18:35 ABG pH 7.342 L ABG pCO2 49.1 H ABG pO2 88.3 ABG HCO3 26.6 H ABG O2 Saturation 96.9 ABG Base Excess 0.9 Assessment and Plan Assessment and Plan (1) Low back pain: (2) Muscle spasm: (3) Chronic prescription opiate use: Plan Intractable low back pain-CT scan does show a lot of arthritis. Patient does not describe radiculopathy type pain. He did have positive straight leg raise but only with pain radiating into his back not down his legs. Maintain current medications. Change patient from Dilaudid to morphine as possible reaction to the Dilaudid. Acute hypoxia-possibly secondary to medication use-patient currently on BiPAP and saturations are good we will check CTA of chest to rule out pulmonary embolism. Patient already anticoagulated. Mild leukocytosis but no infectious signs Anemia-likely chronic follow-up as an outpatient Mild elevation in his BNP this may be chronic for him he does have chronic lymphedema as well. For his intractable low pelvic pain since is not radicular in nature continue medications as already prescribed maintain observation status until evaluated by physical therapy
[2023-03-06 19:01] LABS: Erythrocyte Sedimentation Rate 60 mm/hr (<=20)
--- NOTE | 2023-03-06 19:03 | PC.NURSE ---
in to round. Pt took cpap off and dropped down to 79%. Went into room reapplied CPAP Sp02 back to 92 %
[2023-03-06 19:11] LABS: Alanine Aminotransferase 27 U/L (16-63); Albumin Globulin Ratio 0.9; Albumin Level 3.3 g/dL (3.4-5.0); Alkaline Phosphatase 112 U/L (46-116); Anion Gap 11.4; Aspartate Amino Transferase 17 U/L (15-37); BUN Creatinine Ratio 22.5; Bilirubin Total 0.5 mg/dL (0.2-1.0); Calcium 8.6 mg/dL (8.5-10.1); Carbon Dioxide 27.2 mmol/L (21.0-32.0); Chloride 104 mmol/L (98-107); Estimated GFR (African America >60 (>=60); Estimated GFR (Non-African Ame >60 (>=60); Globulin 3.8 g/dL; Glucose 90 mg/dL (74-106); Potassium 4.6 mmol/L (3.5-5.1); Sodium 138 mmol/L (136-145); Total Protein 7.1 g/dL (6.4-8.2)
[2023-03-06 19:13] LABS: Ammonia 14 umol/L (11-32)
[2023-03-06 19:15] LABS: Magnesium 1.7 mg/dL (1.8-2.4)
[2023-03-06 19:20] LABS: C Reactive Protein 4.3 mg/dL (<=1.0); Lactate/Lactic Acid 0.3 mmol/L (0.4-2.0)
[2023-03-06 20:15] LABS: Glucometer 93 mg/dL (74-106)
[2023-03-06] MEDS: KETOROLAC TROMETHAMINE 30 MG/ML VIAL IVP (20:28)
[2023-03-06] MEDS: DIPHENHYDRAMINE HCL 50 MG/ML (1ML) VIAL 25 MG IV (20:28)
[2023-03-06] MEDS: NICOTINE 21 MG PATCH TD (20:29)
[2023-03-06] MEDS: APIXABAN 5 MG TABLET PO (20:29)
[2023-03-06] MEDS: PREGABALIN 100 MG CAPSULE PO (20:29)
[2023-03-06] MEDS: CARVEDILOL 12.5 MG TABLET 37.5 MG PO (20:29)
[2023-03-06] MEDS: FERROUS SULFATE 325 MG TABLET PO (20:29)
--- NOTE | 2023-03-06 21:29 | PC.NURSE ---
RN rounded on patient, he is asleep. Aide completed vital signs and patient still did not wake up
--- NOTE | 2023-03-06 22:28 | PC.NURSE ---
RN rounded on patient after administering medications. Patient very difficult to arouse. Lethargic and only responding with a grunt and raising his eyebrows. Pt did not respond or wake up when vital signs were obtained by the nurse aide. Heart rate is currently 71 and pulse ox is 95% on CPAP with 4 Liters. Patient would not wake up to take 2200 medication, Flomax.
[2023-03-07] VITALS (16 sets, daily range): BP systolic 137–159; BP diastolic 60–76; PULSE 65–87; RESP 18; TEMP 36.8–36.9; O2SAT 92–98
[2023-03-07] MEDS: METHYLPREDNISOLONE SOD SUCC PF 125 MG/2 ML VIAL IVP ×3 (02:24→15:15)
[2023-03-07 03:21] LABS: Bilirubin Urine NEGATIVE (NEGATIVE); Blood Urine NEGATIVE (NEGATIVE); Clarity Urine CLEAR (CLEAR); Color Urine YELLOW (YELLOW); Glucose Urine UA NEGATIVE (NEGATIVE); Ketones Urine 15 mg/dL (NEGATIVE); Leukocyte Esterase Urine NEGATIVE (NEGATIVE); Nitrite Urine NEGATIVE (NEGATIVE); Protein Urine 30 mg/dL (NEG/TRACE); Specific Gravity Urine 1.015 (1.005-1.025); Urobilinogen Urine 0.2 EU/dL (0.2-1.0); pH Urine 5.5 (5.0-9.0)
[2023-03-07 03:27] LABS: RBC Urine 0-2 #/HPF (0-2); WBC Urine 0-2 #/HPF (NONE SEEN)
[2023-03-07 03:28] LABS: Bacteria Urine SMALL #/HPF (NONE SEEN); Cast Seen? NONE SEEN #/LPF (NONE SEEN); Crystals Seen? None Seen #/HPF (None Seen); Mucus Urine NONE SEEN (NONE SEEN); Squamous Epithelial Cell Urine FEW #/LPF (NONE/RARE)
[2023-03-07] MEDS: IPRATROPIUM/ALBUTEROL SULFATE 3 ML AMPUL.NEB IH ×3 (04:15→15:09)
[2023-03-07] MEDS: CLONIDINE HCL 0.2 MG TABLET PO ×2 (05:39→14:48)
[2023-03-07] MEDS: HYDRALAZINE HCL 50 MG TABLET 100 MG PO ×2 (05:39→14:50)
[2023-03-07 06:09] LABS: Alanine Aminotransferase 24 U/L (16-63); Albumin Globulin Ratio 0.8; Albumin Level 2.9 g/dL (3.4-5.0); Alkaline Phosphatase 102 U/L (46-116); Anion Gap 16.1; Aspartate Amino Transferase 18 U/L (15-37); BUN Creatinine Ratio 26.7; Bilirubin Total 0.5 mg/dL (0.2-1.0); Calcium 8.7 mg/dL (8.5-10.1); Carbon Dioxide 23.5 mmol/L (21.0-32.0); Chloride 103 mmol/L (98-107); Estimated GFR (African America >60 (>=60); Estimated GFR (Non-African Ame >60 (>=60); Globulin 3.7 g/dL; Glucose 166 mg/dL (74-106); Potassium 4.6 mmol/L (3.5-5.1); Sodium 138 mmol/L (136-145); Total Protein 6.6 g/dL (6.4-8.2)
[2023-03-07 07:21] LABS: Hematocrit 30.5 % (42.0-54.0); Hemoglobin 9.2 g/dL (14.0-18.0); Immature Granulocytes Abs Auto 0.05 10^3/uL (0.00-0.03); Immature Granulocytes Pct Auto 0.5 % (0.0-0.5); Lymphocytes Absolute Auto 0.6 10^3/uL (1.2-3.8); Lymphocytes Percent Auto 5.3 % (20.5-60.0); Mean Corpuscular HGB Conc 30.2 g/dL (29.9-35.2); Mean Corpuscular Hemoglobin 26.5 pg (25.9-34.0); Mean Corpuscular Volume 87.9 fL (80.0-94.0); Mean Platelet Volume 10.3 fL (9.5-13.5); Monocytes Absolute Auto 0.1 10^3/uL (0.3-0.8); Neutrophils Absolute Auto 9.7 10^3/uL (1.4-6.5); Neutrophils Percent Auto 93.2 % (43.0-75.0); Platelet Count 141 10^3/uL (150-450); Red Blood Count 3.47 10^6/uL (4.70-6.10); Red Cell Distribution Width 16.7 % (11.0-15.0); White Blood Count 10.4 10^3/uL (4.0-11.0)
--- NOTE | 2023-03-07 08:02 | P.PN_ITS ---
Progress Note: Subjective Subjective Interval history: Pain much improved this morning Exam Constitutional Vital Signs, click to edit/add: Last Vital Signs Temp 98.5 F 03/07/23 05:26 Pulse 72 03/07/23 06:00 Resp 18 03/07/23 05:26 BP 155/60 H 03/07/23 05:39 Pulse Ox 94 L 03/07/23 06:00 O2 Del Method CPAP 03/07/23 05:26 O2 Flow Rate 4 03/07/23 05:26 Common normals: no apparent distress Chest Common normals: inspection of chest normal Back & Pelvis Other: Much improved. Less pain on palpation. Progress Note: Objective Labs Labs: Short CBC 03/06/23 03/07/23 Range/Units 18:47 05:24 WBC 11.6 H 10.4 (4.0-11.0) 10^3/uL Hgb 9.5 L 9.2 L (14.0-18.0) g/dL Hct 32.1 L 30.5 L (42.0-54.0) % Plt Count 169 141 L (150-450) 10^3/uL BMP 03/06/23 03/07/23 18:47 05:24 Sodium 138 138 Potassium 4.6 4.6 Chloride 104 103 Carbon Dioxide 27.2 23.5 BUN 27.0 H 32.0 H Creatinine 1.20 1.20 Glucose 90 166 H Calcium 8.6 8.7 Liver Function 03/06/23 03/07/23 Range/Units 18:47 05:24 Total Bilirubin 0.5 0.5 (0.2-1.0) mg/dL AST 17 18 (15-37) U/L ALT 27 24 (16-63) U/L Alkaline Phosphatase 112 102 (46-116) U/L Albumin 3.3 L 2.9 L (3.4-5.0) g/dL Urine 03/07/23 Range/Units 03:10 Urine Color Yellow (YELLOW) Urine Clarity Clear (CLEAR) Urine pH 5.5 (5.0-9.0) Ur Specific [place] 1.015 (1.005-1.025) Urine Protein 30 A (NEG/TRACE) mg/dL Urine Glucose (UA) Negative (NEGATIVE) mg/dL Progress Note: A&P Assessment and Plan (1) Low back pain: (2) Muscle spasm: (3) Chronic prescription opiate use: Plan Intractable low back pain-CT scan does show a lot of arthritis. Patient does not describe radiculopathy type pain. -Pain much improved this morning-physical therapy ordered patient. If ambulating safely later today he will be discharged home in improving condition. Medications see list. Follow-up with PCP within the next week. Acute hypoxia-possibly secondary to medication use-so far off BiPAP this morning his O2 saturations are maintaining Mild leukocytosis but no infectious signs-can monitor as an outpatient no change in symptoms overnight Anemia-likely chronic follow-up as an outpatient Mild elevation in his BNP this may be chronic for him he does have chronic lymphedema as well.-Repeating today.
[2023-03-07] MEDS: INSULIN DETEMIR 300 UNIT/3 ML INSULN.PEN 44 UNIT SUBQ (08:29)
[2023-03-07] MEDS: INSULIN ASPART 300 UNIT/3 ML PEN SUBQ ×2 (08:29→12:55)
[2023-03-07] MEDS: ASPIRIN 81 MG TABLET.DR PO (08:30)
[2023-03-07] MEDS: CARVEDILOL 12.5 MG TABLET 37.5 MG PO (08:30)
[2023-03-07] MEDS: SERTRALINE HCL 100 MG TABLET 150 MG PO (08:30)
[2023-03-07] MEDS: LISINOPRIL 10 MG TABLET 20 MG PO (08:30)
[2023-03-07] MEDS: ALLOPURINOL 100 MG TABLET PO (08:30)
[2023-03-07] MEDS: ATORVASTATIN CALCIUM 40 MG TABLET 80 MG PO (08:30)
[2023-03-07] MEDS: PREGABALIN 100 MG CAPSULE PO (08:30)
[2023-03-07] MEDS: FOLIC ACID/VIT B6/VIT B12 TABLET 1 TAB PO (08:30)
[2023-03-07] MEDS: BUMETANIDE 1 MG TABLET PO (08:30)
[2023-03-07] MEDS: APIXABAN 5 MG TABLET PO (08:30)
[2023-03-07] MEDS: FERROUS SULFATE 325 MG TABLET PO (08:31)
[2023-03-07] MEDS: KETOROLAC TROMETHAMINE 30 MG/ML VIAL IVP ×2 (08:31→14:50)
[2023-03-07] MEDS: OMEPRAZOLE 40 MG CAPSULE.DR PO (08:31)
[2023-03-07] MEDS: MONTELUKAST SODIUM 10 MG TABLET PO (08:31)
[2023-03-07] MEDS: ORPHENADRINE 60 MG/ 2 ML VIAL IV (08:31)
[2023-03-07 11:47] LABS: Glucometer 292 mg/dL (74-106)
--- NOTE | 2023-03-08 15:46 | CM.DCFOLLOWU ---
Pt in ER- being readmitted
== END 2023-03-07 17:06 | disposition home or self-care (01) ==
LOC: ER 16:04 → MS 16:40
PROVIDERS: Admitting Provider Family Medicine; Emergency Provider Emergency Medicine; PCP Nurse Practitioner Family; Visit Provider Family Medicine
DX: M54.50 Low back pain, unspecified (principal); M62.830 Muscle spasm of back; R09.02 Hypoxemia; D72.829 Elevated white blood cell count, unspecified; R79.89 Other specified abnormal findings of blood chemistry; D64.9 Anemia, unspecified; M47.816 Spondylosis without myelopathy or radiculopathy, lumbar region; I48.91 Unspecified atrial fibrillation; E66.01 Morbid (severe) obesity due to excess calories; K21.9 Gastro-esophageal reflux disease without esophagitis; G89.4 Chronic pain syndrome; N40.0 Benign prostatic hyperplasia without lower urinary tract symptoms; M79.7 Fibromyalgia; E78.00 Pure hypercholesterolemia, unspecified; E11.9 Type 2 diabetes mellitus without complications; Z68.43 Body mass index [BMI] 50.0-59.9, adult; G47.30 Sleep apnea, unspecified; R60.0 Localized edema; L97.812 Non-pressure chronic ulcer of other part of right lower leg with fat layer exposed; I87.313 Chronic venous hypertension (idiopathic) with ulcer of bilateral lower extremity; L97.822 Non-pressure chronic ulcer of other part of left lower leg with fat layer exposed; Z96.611 Presence of right artificial shoulder joint; Z79.01 Long term (current) use of anticoagulants; Z79.4 Long term (current) use of insulin; Z79.899 Other long term (current) drug therapy; Z79.82 Long term (current) use of aspirin; Z87.891 Personal history of nicotine dependence; Z98.890 Other specified postprocedural states; Z96.641 Presence of right artificial hip joint
CPT/HCPCS: 36415; 36600; 71275; 72131; 80053; 81001; 82140; 82805; 82948; 83605; 83690; 83735; 83880; 85025; 85652; 86140; 87070; 94640; 94667; 94668; 94761; 96374; 96375; 96376; 97165; 99285; G0378; G0463; J1170; J2930; Q9967

== ENCOUNTER 2023-03-06 15:12 | Outpatient (OUT) | payer BC, MEDICARE, SELFPAY | END 2023-03-06 15:13 | disposition home or self-care (01) | LOC: WC 15:12 | PROVIDERS: PCP Nurse Practitioner Family; Visit Provider Physician Assistant | DX: R60.0 Localized edema (principal); L97.812 Non-pressure chronic ulcer of other part of right lower leg with fat layer exposed; I87.313 Chronic venous hypertension (idiopathic) with ulcer of bilateral lower extremity; L97.822 Non-pressure chronic ulcer of other part of left lower leg with fat layer exposed | CPT/HCPCS: G0463 ==

== ENCOUNTER 2023-03-08 13:09 | Inpatient (IN) | payer BC, MEDICARE, SELFPAY ==
[2023-03-08] VITALS (10 sets, daily range): BP systolic 144–185; BP diastolic 58–68; PULSE 80–91; RESP 22–26; TEMP 37.1–37.4; O2SAT 82–99; BMI 53.2; BMI 53.1
--- NOTE | 2023-03-08 13:16 | ED.BACK1 ---
HPI - Back Pain/Injury General Chief Complaint: Back Pain/Injury Stated Complaint: BACK PAIN Time Seen by Provider: 03/08/23 13:11 Source: patient Mode of arrival: ambulance Limitations: no limitations History of Present Illness HPI Narrative: patient is a 62-year-old male with a history of morbid obesity and diabetes who presents to the emergency department for continued pain in the back. Patient was admitted to this hospital on 03/06/23, discharged on 03/07/23. He states his pain had improved yesterday and he was able to go home but he had a return of pain today. He reports severe spasms in the low back, he denies any radicular symptoms to the legs, no peripheral paresthesias or urinary changes. He denies any falls or injuries. He was started on oxygen at nighttime, he is currently on oxygen by nasal cannula from EMS. He did not take any muscle relaxants today, he took a Percocet this morning but states he was not prescribed any additional medications for home. Related Data Home Medications Medication Instructions Recorded Confirmed albuterol sulfate 90 mcg/actuation 2 puff inhalation Q4H PRN 01/16/23 03/06/23 aerosol inhaler shortness of breath or wheezing allopurinol 100 mg tablet 100 mg PO DAILY 01/16/23 03/06/23 apixaban 5 mg tablet (Eliquis) 5 mg PO Q12H 01/16/23 03/06/23 aspirin 81 mg tablet,delayed 81 mg PO DAILY 01/16/23 03/06/23 release (Adult Aspirin Regimen) atorvastatin 80 mg tablet (Lipitor) 80 mg PO DAILY 01/16/23 03/06/23 bumetanide 1 mg tablet 1 mg PO DAILY 01/16/23 03/06/23 carvedilol 25 mg tablet 37.5 mg PO Q12H 01/16/23 03/06/23 clonidine HCl 0.2 mg tablet 0.2 mg PO TID 01/16/23 03/06/23 ferrous sulfate 325 mg (65 mg 325 mg PO BID 01/16/23 03/06/23 iron) tablet (FeroSul) hydralazine 100 mg tablet 100 mg PO Q8H 01/16/23 03/06/23 insulin glargine 100 unit/mL 44 unit subcut BID 01/16/23 03/06/23 subcutaneous solution (Lantus U-100 Insulin) lisinopril 10 mg tablet 20 mg PO DAILY 01/16/23 03/06/23 montelukast 10 mg tablet 10 mg PO DAILY 01/16/23 03/06/23 omeprazole 40 mg capsule,delayed 40 mg PO DAILY 01/16/23 03/06/23 release pregabalin 100 mg capsule 100 mg PO Q12H 01/16/23 03/06/23 sertraline 100 mg tablet (Zoloft) 150 mg PO DAILY 01/16/23 03/06/23 tamsulosin 0.4 mg capsule 0.4 mg PO Q24H 01/16/23 03/06/23 tiotropium 2.5 mcg-olodaterol 2.5 2 puff inhalation Q24H 01/16/23 03/06/23 mcg/actuation mist for inhalation (Stiolto Respimat) tizanidine 4 mg tablet 4 mg PO QDAY 01/16/23 03/06/23 vitamin A19-zcvctvift factor 110 1 cap PO DAILY 01/16/23 03/06/23 mg-0.5 mg capsule tizanidine 4 mg tablet 8 mg PO .QHS 03/06/23 03/06/23 Previous Rx's Medication Instructions Recorded naloxone 4 mg/actuation nasal 4 mg intranasal Q2M PRN opioid 12/08/22 spray (Narcan) overdose #2 ea oxycodone-acetaminophen 7.5 mg-325 1 tab PO BID PRN pain #60 tabs 02/01/23 mg tablet (Percocet) Allergies Allergy/AdvReac Type Severity Reaction Status Date / Time epoetin [place] [From Procrit] Allergy Verified 02/13/23 09:44 ertapenem [From Invanz] Allergy Verified 02/13/23 09:44 Penicillins Allergy Verified 02/13/23 09:44 Sulfa (Sulfonamide Allergy Verified 02/13/23 09:44 Antibiotics) Review of Systems ROS Constitutional Denies: fever or chills Ears, nose, mouth, and throat Denies: throat pain or neck pain Respiratory Denies: shortness of breath or cough Gastrointestinal Denies: nausea or vomiting Genitourinary Denies: painful urination Musculoskeletal Reports: back pain; Denies: neck pain, extremity pain or extremity swelling Integumentary/Breast Denies: rash Endocrine Denies: excessive urination PFSH [facility] Medical History (Updated 03/08/23 @ 15:09 by BERNADINE Lima) A-fib ?I48.91 - Unspecified atrial fibrillation (ICD-10) Acid reflux ?K21.9 - Gastro-esophageal reflux disease without esophagitis (ICD-10) Anemia ?D64.9 - Anemia, unspecified (ICD-10) Chronic pain syndrome ?G89.4 - Chronic pain syndrome (ICD-10) COPD (chronic obstructive pulmonary disease) ?J44.9 - Chronic obstructive pulmonary disease, unspecified (ICD-10) Diabetes ?E11.9 - Type 2 diabetes mellitus without complications (ICD-10) Enlarged prostate ?N40.0 - Benign prostatic hyperplasia without lower urinary tract symptoms (ICD-10) Fibromyalgia ?M79.7 - Fibromyalgia (ICD-10) High cholesterol ?E78.00 - Pure hypercholesterolemia, unspecified (ICD-10) Kidney failure ?N19 - Unspecified kidney failure (ICD-10) Sleep apnea ?G47.30 - Sleep apnea, unspecified (ICD-10) Surgical History (Updated 03/06/23 @ 17:09 by Hui Peralta LPN) History of arthroplasty of right shoulder ?Z96.611 - Presence of right artificial shoulder joint (ICD-10) History of hernia repair ?Z98.890 - Other specified postprocedural states (ICD-10) ?Z87.19 - Personal history of other diseases of the digestive system (ICD-10) History of right hip replacement ?Z96.641 - Presence of right artificial hip joint (ICD-10) Family History (Updated 03/06/23 @ 17:03 by Hui Peralta LPN) Brother Family history of cancer Social History Within the past year, how often did you have a drink containing alcohol: monthly or less Within the past year, how many standard drinks containing alcohol did you have on a typical day: 1 or 2 Within the past year, how often did you have six or more drinks on one occasion: never Total score: 0 Score interpretation: A score less than 4 is consistent with normal alcohol consumption. Smoking status: Former smoker Second hand tobacco smoke exposure: No Non-prescribed substance use: denies use Known occupational exposures/hazards: No Highest level of school completed/degree received: some college, no degree Do you want help with school or training: No Are you now , , , , never or living with a partner: In a typical week, how many times do you talk on the telephone with family, friends, or neighbors: twice per week How often do you get together with friends or relatives: twice per week How often do you attend baptism or buddhist services: never Do you belong to any clubs or organizations such as baptism groups unions, [employer] or athletic groups, or school groups: yes Total score: 3 Score interpretation: A score of greater than or equal to 2 indicates the lowest level of social isolation. Little interest or pleasure in doing things: not at all Feeling down, depressed, or hopeless: not at all Feel stressed/tense/nervous/anxious/difficulty sleeping: not at all Due to disability, difficulty making decisions: No Do you think of yourself as: straight/heterosexual Gender Identity: male Exam Narrative Exam Narrative: Gen.: Awake, alert, in no distress Head: Normocephalic, atraumatic ENT: Moist mucous membranes Respiratory: No respiratory distress, expiratory wheezing globally Cardio: Regular rate and rhythm Gastrointestinal: Abdomen is soft, nondistended and nontender to palpation Back: diffuse tenderness of the lumbar spine with no bony point tenderness or obvious deformity of the lumbar spine Extremities: Moves extremities equally, no injuries noted; normal dorsiflexion and plantarflexion of the lower extremities, no decrease in sensation to the medial thighs Psych: Normal mood and affect Neuro: No focal neuro deficit Skin: Warm, dry, intact Constitutional Vital Signs, click to edit/add: Last Vital Signs Temp 98.7 F 03/08/23 13:11 Pulse 86 03/08/23 14:56 Resp 22 03/08/23 14:56 BP 151/58 H 03/08/23 14:56 Pulse Ox 99 03/08/23 14:56 O2 Del Method Nasal Cannula 03/08/23 13:11 O2 Flow Rate 3 03/08/23 14:56 Course Vital Signs Vital signs: Vital Signs Temperature 98.7 F 03/08/23 13:11 Pulse Rate 88 03/08/23 13:11 Respiratory Rate 24 03/08/23 13:11 Blood Pressure 179/68 H 03/08/23 13:11 Pulse Oximetry 98 03/08/23 13:11 Oxygen Delivery Method Nasal Cannula 03/08/23 13:11 Oxygen Delivery Flow Rate 2 03/08/23 13:11 Temperature 98.7 F 03/08/23 13:11 Pulse Rate 86 03/08/23 14:56 Respiratory Rate 22 03/08/23 14:56 Blood Pressure 151/58 H 03/08/23 14:56 Pulse Oximetry 99 03/08/23 14:56 Oxygen Delivery Method Nasal Cannula 03/08/23 13:11 Oxygen Delivery Flow Rate 3 03/08/23 14:56 MDM - Back Pain/Injury MDM Narrative Medical decision making narrative: patient medicated with morphine, Zofran, Norflex. He maintains normal vital signs. Basic lab studies were ordered. He had a CTA of the chest yesterday as well as a CT of the lumbar spine. He has no focal neuro deficits, no radicular symptoms or paresthesias. He continues to complain of severe pain and is unable to perform his ADLs. He is admitted for intractable back pain. Lab Data Attestation: I reviewed the patient's lab results. Labs: Lab Results 03/08/23 Range/Units 14:45 WBC 18.5 H (4.0-11.0) 10^3/uL RBC 3.88 L (4.70-6.10) 10^6/uL Hgb 10.1 L (14.0-18.0) g/dL Hct 34.8 L (42.0-54.0) % MCV 89.7 (80.0-94.0) fL MCH 26.0 (25.9-34.0) pg MCHC 29.0 L (29.9-35.2) g/dL RDW 16.7 H (11.0-15.0) % Plt Count 164 (150-450) 10^3/uL MPV 10.6 (9.5-13.5) fL Neut % (Auto) 90.9 H (43.0-75.0) % Lymph % (Auto) 1.9 L (20.5-60.0) % [place] % (Auto) 5.6 (1.7-12.0) % Eos % (Auto) 0.0 L (0.9-7.0) % Baso % (Auto) 0.1 L (0.2-2.0) % Neut # (Auto) 16.8 H (1.4-6.5) 10^3/uL Lymph # (Auto) 0.4 L (1.2-3.8) 10^3/uL [place] # (Auto) 1.0 H (0.3-0.8) 10^3/uL Eos # (Auto) 0.0 (0.0-0.7) 10^3/uL Baso # (Auto) 0.0 (0.0-0.1) 10^3/uL Abs Immat Gran (auto) 0.28 H (0.00-0.03) 10^3/uL Imm/Tot Granulo (auto) 1.5 H (0.0-0.5) % Sodium 140 (136-145) mmol/L Potassium 4.1 (3.5-5.1) mmol/L Chloride 101 (98-107) mmol/L Carbon Dioxide 26.1 (21.0-32.0) mmol/L Anion Gap 17.0 BUN 54.0 H (7.0-18.0) mg/dL Creatinine 1.70 H (0.70-1.30) mg/dL Est GFR ( Amer) 49 L (>=60) Est GFR (Non-Af Amer) 41 L (>=60) BUN/Creatinine Ratio 31.8 Glucose 123 H (74-106) mg/dL Calcium 8.7 (8.5-10.1) mg/dL Total Bilirubin 0.5 (0.2-1.0) mg/dL AST 35 (15-37) U/L ALT 35 (16-63) U/L Alkaline Phosphatase 106 (46-116) U/L Total Protein 7.3 (6.4-8.2) g/dL Albumin 3.1 L (3.4-5.0) g/dL Globulin 4.2 g/dL Albumin/Globulin Ratio 0.7 Discharge Plan Discharge Chief Complaint: Back Pain/Injury Clinical Impression: Intractable back pain Patient Disposition: Admitted as Observation Time of Disposition Decision: 15:09 Condition: Good
[2023-03-08] MEDS: ONDANSETRON PF 4 MG/2 ML VIAL IV (13:31)
[2023-03-08] MEDS: MORPHINE SULFATE 4 MG/ML VIAL IV (13:33)
[2023-03-08] MEDS: ORPHENADRINE 60 MG/ 2 ML VIAL IV ×2 (13:33→21:24)
[2023-03-08 14:52] LABS: Basophils Percent Auto 0.1 % (0.2-2.0); Hematocrit 34.8 % (42.0-54.0); Hemoglobin 10.1 g/dL (14.0-18.0); Immature Granulocytes Abs Auto 0.28 10^3/uL (0.00-0.03); Immature Granulocytes Pct Auto 1.5 % (0.0-0.5); Lymphocytes Absolute Auto 0.4 10^3/uL (1.2-3.8); Lymphocytes Percent Auto 1.9 % (20.5-60.0); Mean Corpuscular Volume 89.7 fL (80.0-94.0); Mean Platelet Volume 10.6 fL (9.5-13.5); Monocytes Percent Auto 5.6 % (1.7-12.0); Neutrophils Absolute Auto 16.8 10^3/uL (1.4-6.5); Neutrophils Percent Auto 90.9 % (43.0-75.0); Platelet Count 164 10^3/uL (150-450); Red Blood Count 3.88 10^6/uL (4.70-6.10); Red Cell Distribution Width 16.7 % (11.0-15.0); White Blood Count 18.5 10^3/uL (4.0-11.0)
[2023-03-08 15:04] LABS: Alanine Aminotransferase 35 U/L (16-63); Albumin Globulin Ratio 0.7; Albumin Level 3.1 g/dL (3.4-5.0); Alkaline Phosphatase 106 U/L (46-116); Aspartate Amino Transferase 35 U/L (15-37); BUN Creatinine Ratio 31.8; Bilirubin Total 0.5 mg/dL (0.2-1.0); Calcium 8.7 mg/dL (8.5-10.1); Carbon Dioxide 26.1 mmol/L (21.0-32.0); Chloride 101 mmol/L (98-107); Estimated GFR (African America 49 (>=60); Estimated GFR (Non-African Ame 41 (>=60); Globulin 4.2 g/dL; Glucose 123 mg/dL (74-106); Potassium 4.1 mmol/L (3.5-5.1); Sodium 140 mmol/L (136-145); Total Protein 7.3 g/dL (6.4-8.2)
--- NOTE | 2023-03-08 17:27 | XR_ITS ---
[address] [address] Patient Name: DENNY BRADY MRN: [id number] date: 1960 Sex: M Assigned Patient Location: [place] Current Patient Location: [place] Accession/Order Number: [id number] Exam Date: 03/08/2023 18:00 Report Date: 03/08/2023 18:35 At the request of: BETH HERCULES Procedure: XR chest 1V EXAMINATION: XR chest 1V HISTORY: Dyspnea COMPARISON: Portable chest 09/14/2021 TECHNIQUE: Portable chest FINDINGS: The lung parenchyma is free of consolidation or infiltrate. No pneumothorax or pleural effusion. The cardiac, mediastinal and hilar contours are normal. The visualized osseous structures exhibit no gross abnormality. XR/XR chest 1V IMPRESSION: No acute cardiopulmonary abnormality. Electronically authenticated by: SIMON PACE Date: 03/08/2023 18:35
[2023-03-08] MEDS: MORPHINE SULFATE 2 MG/ML SYRINGE 1 MG IV (17:43)
--- NOTE | 2023-03-08 17:46 | PHOTOS ---
right lower leg
--- NOTE | 2023-03-08 17:47 | PHOTOS ---
left lower leg
[2023-03-08] MEDS: KETOROLAC TROMETHAMINE 30 MG/ML VIAL IVP ×2 (17:51→23:11)
[2023-03-08] MEDS: METHYLPREDNISOLONE SOD SUCC PF 125 MG/2 ML VIAL IVP ×2 (17:51→23:11)
[2023-03-08] MEDS: FERROUS SULFATE 325 MG TABLET PO (21:24)
[2023-03-08] MEDS: APIXABAN 5 MG TABLET PO (21:24)
[2023-03-08] MEDS: CLONIDINE HCL 0.2 MG TABLET PO (21:24)
[2023-03-08] MEDS: PREGABALIN 100 MG CAPSULE PO (21:24)
[2023-03-08] MEDS: L. ACIDOPHILUS/L.BULGARICUS 1 PACKET GRAN.PACK PO (21:24)
[2023-03-08] MEDS: CARVEDILOL 25 MG TABLET 37.5 MG PO (21:24)
[2023-03-08] MEDS: LEVOFLOXACIN IN DEXTROSE 5 % 750 MG/150 ML IV.SOLN 100 MG IV (21:25)
[2023-03-08 21:29] LABS: Glucometer 75 mg/dL (74-106)
[2023-03-08] MEDS: HYDRALAZINE HCL 50 MG TABLET 100 MG PO (21:31)
[2023-03-08] MEDS: IPRATROPIUM/ALBUTEROL SULFATE 3 ML AMPUL.NEB IH (22:27)
[2023-03-09] VITALS (20 sets, daily range): BP systolic 100–148; BP diastolic 30–73; PULSE 59–98; RESP 18–22; TEMP 36.6–36.8; O2SAT 91–99
[2023-03-09 05:22] LABS: Basophils Percent Auto 0.1 % (0.2-2.0); Eosinophils Percent Auto 0.1 % (0.9-7.0); Hematocrit 33.2 % (42.0-54.0); Hemoglobin 10.1 g/dL (14.0-18.0); Immature Granulocytes Abs Auto 0.85 10^3/uL (0.00-0.03); Immature Granulocytes Pct Auto 8.2 % (0.0-0.5); Lymphocytes Absolute Auto 0.4 10^3/uL (1.2-3.8); Lymphocytes Percent Auto 3.4 % (20.5-60.0); Mean Corpuscular HGB Conc 30.4 g/dL (29.9-35.2); Mean Corpuscular Hemoglobin 26.6 pg (25.9-34.0); Mean Corpuscular Volume 87.4 fL (80.0-94.0); Mean Platelet Volume 10.9 fL (9.5-13.5); Monocytes Absolute Auto 0.5 10^3/uL (0.3-0.8); Monocytes Percent Auto 5.2 % (1.7-12.0); Neutrophils Absolute Auto 8.6 10^3/uL (1.4-6.5); Platelet Count 138 10^3/uL (150-450); Red Cell Distribution Width 16.6 % (11.0-15.0); White Blood Count 10.4 10^3/uL (4.0-11.0)
[2023-03-09] MEDS: METHYLPREDNISOLONE SOD SUCC PF 125 MG/2 ML VIAL IVP ×3 (05:35→17:15)
[2023-03-09] MEDS: HYDRALAZINE HCL 50 MG TABLET 100 MG PO (05:35)
[2023-03-09] MEDS: OMEPRAZOLE 40 MG CAPSULE.DR PO (05:36)
[2023-03-09] MEDS: CLONIDINE HCL 0.2 MG TABLET PO (05:36)
[2023-03-09] MEDS: KETOROLAC TROMETHAMINE 30 MG/ML VIAL IVP ×3 (05:37→17:15)
[2023-03-09] MEDS: IPRATROPIUM/ALBUTEROL SULFATE 3 ML AMPUL.NEB IH ×4 (05:44→22:26)
[2023-03-09 05:54] LABS: Alanine Aminotransferase 19 U/L (16-63); Albumin Globulin Ratio 0.6; Albumin Level 2.6 g/dL (3.4-5.0); Alkaline Phosphatase 104 U/L (46-116); Anion Gap 13.2; Aspartate Amino Transferase 32 U/L (15-37); BUN Creatinine Ratio 36.1; Bilirubin Total 0.5 mg/dL (0.2-1.0); Carbon Dioxide 25.9 mmol/L (21.0-32.0); Chloride 102 mmol/L (98-107); Estimated GFR (African America 50 (>=60); Estimated GFR (Non-African Ame 41 (>=60); Globulin 4.2 g/dL; Glucose 170 mg/dL (74-106); Potassium 4.1 mmol/L (3.5-5.1); Sodium 137 mmol/L (136-145); Total Protein 6.8 g/dL (6.4-8.2)
--- NOTE | 2023-03-09 06:55 | ECG_ITS ---
[facility] Test Date: 2023-03-09 Pat Name: DENNY BRADY Department: Room: Gender: Male [employer] Operator: : 1960 Requested By: BETH HERCULES Order Number: [id number] Reading MD: BETH HERCULES Measurements Intervals [place] Rate: 83 P: 58 MI: 200 QRS: 41 QRSD: 91 T: 45 QT: 347 QTc: 409 Interpretive Statements SINUS RHYTHM LOW QRS VOLTAGE IN EXTREMITY LEADS [QRS DEFLECTION < 0.5 mV IN LIMB LEADS] POSSIBLE ANTERIOR MYOCARDIAL INFARCTION [30 ms Q WAVE IN V3/V4, OR R < 0.2 mV IN V4], PROBABLY OLD No previous ECG available for comparison Electronically Signed On 03-11-2023 6:55:51 EST by BETH HERCULES
--- NOTE | 2023-03-09 06:55 | CA_ITS ---
Patient Name: DENNY BRADY MR#: [id number] : 1960 Exam Date: 03/09/2023 Ordering Doctor: DR Connor Castaneda . ECHOCARDIOGRAM REPORT PROCEDURE: CA ECHO DOPPLER COMPLETE INDICATIONS: Shortness of breath with hypoxia, COPD, hypertension, diabetes, sleep apnea COMPARISON: None. DESCRIPTION: COMPLETE ECHOCARDIOGRAM Real-time transthoracic echocardiography with 2D, M-mode, spectral and color flow Doppler performed. QUALITY: Technically difficult due to patient's condition. 68 349# BSA 2.59 m2 LEFT VENTRICLE: Normal chamber size. Mild concentric left ventricular hypertrophy. LV EF: Global left ventricular systolic function is difficult to assess but appears preserved; visually estimated ejection fraction is 55 to 60%. Unable to assess regional wall motion abnormalities. Consider contrast study for better delineation of endocardial borders. DIASTOLIC: Normal diastolic function. ATRIAL SEPTUM: Not well visualized. LEFT ATRIUM: Normal chamber size. RIGHT ATRIUM: Not well visualized. RIGHT VENTRICLE: Poorly seen; appears enlarged with reduced systolic function. TRICUSPID VALVE: Normal mobility and thickness. No stenosis with no regurgitation. Unable to estimate right ventricular systolic pressure due to lack of measurable tricuspid regurgitation. MITRAL VALVE: Normal mobility and thickness. No evidence of mitral valve stenosis. There is no mitral annular calcification. No mitral regurgitation. AORTIC VALVE: Not well visualized. No evidence of aortic valve stenosis. No aortic regurgitation. AORTIC ROOT: Not well visualized; appears to be normal in diameter. PULMONIC VALVE: Not well visualized. No stenosis. No regurgitation. PERICARDIUM: Anterior free space; trivial effusion versus fat pad. IVC: Not well visualized. CONCLUSION: 1. Global left ventricular systolic function is difficult to assess but appears preserved; visually estimated ejection fraction is 55 to 60% 2. Mildly increased left ventricular wall thickness 3. The right ventricle is poorly seen but appears enlarged with reduced systolic function 4. Normal diastolic function 5. Valves are poorly seen; no significant valvular abnormalities 6. Anterior free space; trivial effusion versus fat pad Adult Echocardiography Procedure Report Left Ventricle LVEDD (3.7 - 5.6 cm): 4.62 cm LVESD (2.2 - 4.0 cm): 3.49 cm LVIVS thickness (0.6 - 1.2 cm): 1.05 cm LVPW thickness (0.5 - 1.0 cm): 1.37 cm e': 0.09 m/s E - e': 3.24 LVOT Max Gradient: 1.63 mm[Hg] LVOT Area (cm2): 0.64 m/s Peak Velocity (LVOT): 0.64 m/s LVOT Diameter 2.14 cm Left Atrium Left Atrium Systolic Dimension: 3.72 cm Mitral Valve MV E to A Ratio: 0.67 Mitral Valve A-Wave Peak Velocity: 0.45 m/s Mitral Valve E-Wave Peak Velocity: 0.30 m/s Right Ventricle Aorta AO Root Diam: 3.61 cm Aortic Valve AoV Area (Peak Kamaljit): 1.88 cm2, 1.88 cm2 Peak Velocity(Antegrade Flow): 1.23 m/s Peak Gradient(Antegrade Flow): 6.02 mm[Hg] Tricuspid Valve Pulmonic Valve Peak Velocity: 1.14 m/s Peak Gradient: 4.09 mm[Hg], 6.45 mm[Hg] Right Atrium Right Atrium Systolic Pressure: 79.85 ml, 79.85 ml Dictated by: Gertrude Tadeo M.D. on 03/10/2023 at 13:36 Approved by: Gertrude Tadeo M.D. on 03/10/2023 at 13:40
[2023-03-09 07:24] LABS: Troponin I High Sensitivity 13.6 pg/mL (4.0-76.1)
--- NOTE | 2023-03-09 07:39 | P.HP_ITS ---
H&P: HPI History of Present Illness Chief complaint: Intractable Low Back Pain Narrative: Patient seen and evaluated in the emergency room secondary to low back pain but also dyspnea. Description chest pain at that time as well. Patient unable to ambulate secondary to the low back pain so patient was admitted initially for observation for that. Once up on the floor condition deteriorated with increasing hypoxia. Placed on 4 L of nasal cannula oxygen. Describes some intermittent chest pain as well with activity. Pain is somewhat improved this morning in his low back but still having intermittent chest pain and shortness of breath with hypoxia. Review of Systems ROS Status of ROS 10 or more systems reviewed and unremarkable except as noted in history and below Constitutional Denies: fever or chills Eyes Denies: change in vision Ears, nose, mouth, and throat Denies: throat pain Cardiovascular Reports: chest pain, edema and swelling of feet/ankles; Denies: palpitations Respiratory Reports: shortness of breath, cough and wheezing Gastrointestinal Denies: abdominal pain Genitourinary Denies: painful urination Musculoskeletal Reports: back pain; Denies: extremity pain [facility] Medical History (Updated 03/08/23 @ 15:09 by BERNADINE Lima) A-fib ?I48.91 - Unspecified atrial fibrillation (ICD-10) Acid reflux ?K21.9 - Gastro-esophageal reflux disease without esophagitis (ICD-10) Anemia ?D64.9 - Anemia, unspecified (ICD-10) Chronic pain syndrome ?G89.4 - Chronic pain syndrome (ICD-10) COPD (chronic obstructive pulmonary disease) ?J44.9 - Chronic obstructive pulmonary disease, unspecified (ICD-10) Diabetes ?E11.9 - Type 2 diabetes mellitus without complications (ICD-10) Enlarged prostate ?N40.0 - Benign prostatic hyperplasia without lower urinary tract symptoms (ICD-10) Fibromyalgia ?M79.7 - Fibromyalgia (ICD-10) High cholesterol ?E78.00 - Pure hypercholesterolemia, unspecified (ICD-10) Kidney failure ?N19 - Unspecified kidney failure (ICD-10) Sleep apnea ?G47.30 - Sleep apnea, unspecified (ICD-10) Surgical History (Updated 03/06/23 @ 17:09 by Hui Peralta LPN) History of arthroplasty of right shoulder ?Z96.611 - Presence of right artificial shoulder joint (ICD-10) History of hernia repair ?Z98.890 - Other specified postprocedural states (ICD-10) ?Z87.19 - Personal history of other diseases of the digestive system (ICD-10) History of right hip replacement ?Z96.641 - Presence of right artificial hip joint (ICD-10) Family History (Updated 03/06/23 @ 17:03 by Hui Peralta LPN) Brother Family history of cancer Social History Within the past year, how often did you have a drink containing alcohol: monthly or less Within the past year, how many standard drinks containing alcohol did you have on a typical day: 1 or 2 Within the past year, how often did you have six or more drinks on one occasion: never Total score: 0 Score interpretation: A score less than 4 is consistent with normal alcohol consumption. Smoking status: Former smoker Second hand tobacco smoke exposure: No Non-prescribed substance use: denies use Known occupational exposures/hazards: No Highest level of school completed/degree received: some college, no degree Do you want help with school or training: No Are you now , , , , never or living with a partner: In a typical week, how many times do you talk on the telephone with family, friends, or neighbors: twice per week How often do you get together with friends or relatives: twice per week How often do you attend catholic or samaritan services: never Do you belong to any clubs or organizations such as catholic groups unions, fraternal or athletic groups, or school groups: yes Total score: 3 Score interpretation: A score of greater than or equal to 2 indicates the lowest level of social isolation. Little interest or pleasure in doing things: not at all Feeling down, depressed, or hopeless: not at all Feel stressed/tense/nervous/anxious/difficulty sleeping: not at all Due to disability, difficulty making decisions: No Do you think of yourself as: straight/heterosexual Gender Identity: male Meds Home Medications and Allergies Home Medications Medication Instructions Recorded Confirmed Type allopurinol 100 mg tablet 100 mg PO DAILY 01/16/23 03/08/23 History apixaban 5 mg tablet (Eliquis) 5 mg PO Q12H 01/16/23 03/08/23 History aspirin 81 mg tablet,delayed 81 mg PO DAILY 01/16/23 03/08/23 History release (Adult Aspirin Regimen) atorvastatin 80 mg tablet (Lipitor) 80 mg PO DAILY 01/16/23 03/08/23 History bumetanide 1 mg tablet 1 mg PO DAILY 01/16/23 03/08/23 History carvedilol 25 mg tablet 37.5 mg PO Q12H 01/16/23 03/08/23 History clonidine HCl 0.2 mg tablet 0.2 mg PO TID 01/16/23 03/08/23 History ferrous sulfate 325 mg (65 mg 325 mg PO BID 01/16/23 03/08/23 History iron) tablet (FeroSul) hydralazine 100 mg tablet 100 mg PO Q8H 01/16/23 03/08/23 History insulin glargine 100 unit/mL 44 unit subcut BID 01/16/23 03/08/23 History subcutaneous solution (Lantus U-100 Insulin) lisinopril 10 mg tablet 20 mg PO DAILY 01/16/23 03/08/23 History montelukast 10 mg tablet 10 mg PO DAILY 01/16/23 03/08/23 History omeprazole 40 mg capsule,delayed 40 mg PO DAILY 01/16/23 03/08/23 History release pregabalin 100 mg capsule 100 mg PO Q12H 01/16/23 03/08/23 History sertraline 100 mg tablet (Zoloft) 150 mg PO DAILY 01/16/23 03/08/23 History tamsulosin 0.4 mg capsule 0.4 mg PO Q24H 01/16/23 03/08/23 History tiotropium 2.5 mcg-olodaterol 2.5 2 puff inhalation Q24H 01/16/23 03/08/23 History mcg/actuation mist for inhalation (Stiolto Respimat) tizanidine 4 mg tablet 4 mg PO QDAY 01/16/23 03/08/23 History vitamin M97-fcrjsaizn factor 110 1 cap PO DAILY 01/16/23 03/08/23 History mg-0.5 mg capsule oxycodone-acetaminophen 7.5 mg-325 1 tab PO BID PRN pain #60 tabs 02/01/23 03/08/23 Rx mg tablet (Percocet) tizanidine 4 mg tablet 8 mg PO .QHS 03/06/23 03/08/23 History Allergies Allergy/AdvReac Type Severity Reaction Status Date / Time epoetin [place] [From Procrit] Allergy Verified 02/13/23 09:44 ertapenem [From Invanz] Allergy Verified 02/13/23 09:44 Penicillins Allergy Verified 02/13/23 09:44 Sulfa (Sulfonamide Allergy Verified 02/13/23 09:44 Antibiotics) Exam Constitutional Vital Signs, click to edit/add: Last Vital Signs Temp 98.2 F 03/09/23 05:55 Pulse 98 H 03/09/23 05:55 Resp 22 03/09/23 05:55 BP 148/73 H 03/09/23 05:55 Pulse Ox 98 03/09/23 06:00 O2 Del Method Nasal Cannula 03/09/23 05:55 O2 Flow Rate 3 03/09/23 05:55 Documenting provider has reviewed patient's vital signs: yes Common normals: apparent distress and negative for healthy appearing General appearance: in distress; not comfortable Nutritional appearance: obese HENMT Common normals: moist oral mucous membranes Lymph Lymphatic: lymphedema Chest Common normals: inspection of chest normal; palpation of chest abnormal (Chest pain on palpation but he describes this is not the same chest pain he) Respiratory Common normals: abnormal respiratory effort, use of accessory muscles and not clear to ascultation bilaterally Auscultation: rales, rhonchi and wheezes Cardio Common normals: regular rate Rhythm: regular rhythm GI Inspection: abnormal to inspection (Morbidly obese) Extremity Other: Bilateral lower extremity edema, worse than last visit Results Labs Labs: Short CBC 03/08/23 03/09/23 Range/Units 14:45 04:51 WBC 18.5 H 10.4 (4.0-11.0) 10^3/uL Hgb 10.1 L 10.1 L (14.0-18.0) g/dL Hct 34.8 L 33.2 L (42.0-54.0) % Plt Count 164 138 L (150-450) 10^3/uL BMP 03/08/23 03/09/23 14:45 04:51 Sodium 140 137 Potassium 4.1 4.1 Chloride 101 102 Carbon Dioxide 26.1 25.9 BUN 54.0 H 61.0 H Creatinine 1.70 H 1.69 H Glucose 123 H 170 H Calcium 8.7 9.0 Liver Function 03/08/23 03/09/23 Range/Units 14:45 04:51 Total Bilirubin 0.5 0.5 (0.2-1.0) mg/dL AST 35 32 (15-37) U/L ALT 35 19 (16-63) U/L Alkaline Phosphatase 106 104 (46-116) U/L Albumin 3.1 L 2.6 L (3.4-5.0) g/dL Assessment and Plan Assessment and Plan (1) Intractable back pain: (2) Muscle spasm: (3) Obesity: (4) A-fib: (5) Anemia: (6) COPD (chronic obstructive pulmonary disease): (7) Sleep apnea: Plan Acute hypoxic respiratory failure requiring 4 L of supplemental oxygen-started on antibiotics yesterday secondary to the leukocytosis, white blood cell count is improved today. Able to wean his supplemental oxygen down to 3 L this morning. Chest x-ray was clear. CTA was done at last admission, and patient has been taking his anticoagulant so PE is unlikely. Most likely has acute exacerbation of COPD secondary to acute bronchitis-on steroids for the low back pain, maintain that, aerosol treatments, antibiotics. If condition deteriorates, consideration for repeat CTA Elevated BNP with possible acute combined congestive heart failure, rales in lungs with increasing peripheral edema-this is deteriorated from last time. Last time he did not have any peripheral edema but now he does. We will start patient on Bumex drip. Cardiac work-up see below. Echocardiogram done approximately 22 months ago showed normal ejection fraction of 60% Chest pain-somewhat reproducible but not his pain getting with ambulation. Check echocardiogram, check troponins, repeat stat EKG, start isosorbide paste Thrombocytopenia-likely secondary to the above Intractable low back pain-on steroids, Toradol, Norflex, pain from a 10 down to a 6 this morning. Physical therapy to work with patient today. CT scan previously showed significant arthritis. He does not have any radicular type pain. No reason for emergent MRI Bilateral lower extremity venous insufficiency versus lymphedema. Swelling is worse than last time.-See above Chronic kidney disease stage II-slightly better than previous day. Likely to go up some with diuresis necessary for his acute combined congestive heart failure Iron deficiency anemia-monitor daily. Stable so far. History of hypomagnesemia-check level this morning Atrial fibrillation-rate controlled Hypertension-continue with home medication as-blood pressure somewhat elevated on admission so uncontrolled hypertension, likely to improve with treatment for heart failure IDDM-insulin sliding scale and maintain home medications Morbid obesity-diet management Condition deteriorated once patient was up on the floor with increasing hypoxia and chest pain. Change patient to inpatient status due to intensity of treatment necessary for acute combined congestive heart failure and acute exacerbation of COPD
[2023-03-09 08:17] LABS: Glucometer 206 mg/dL (74-106)
[2023-03-09] MEDS: ORPHENADRINE 60 MG/ 2 ML VIAL IV ×2 (08:38→23:11)
[2023-03-09] MEDS: CARVEDILOL 25 MG TABLET 37.5 MG PO (08:38)
[2023-03-09] MEDS: SERTRALINE HCL 100 MG TABLET 150 MG PO (08:38)
[2023-03-09] MEDS: FERROUS SULFATE 325 MG TABLET PO ×2 (08:38→23:12)
[2023-03-09] MEDS: ASPIRIN 81 MG TABLET.DR PO (08:39)
[2023-03-09] MEDS: MORPHINE SULFATE 2 MG/ML SYRINGE 1 MG IV ×2 (08:39→18:47)
[2023-03-09] MEDS: L. ACIDOPHILUS/L.BULGARICUS 1 PACKET GRAN.PACK PO ×2 (08:39→23:12)
[2023-03-09] MEDS: ALLOPURINOL 100 MG TABLET PO (08:39)
[2023-03-09] MEDS: MONTELUKAST SODIUM 10 MG TABLET PO (08:39)
[2023-03-09] MEDS: NITROGLYCERIN 2% 1 GRAM PACKET 1 GM TD ×2 (08:39→14:45)
[2023-03-09] MEDS: PREGABALIN 100 MG CAPSULE PO ×2 (08:39→23:11)
[2023-03-09] MEDS: TAMSULOSIN HCL 0.4 MG CAPSULE PO (08:39)
[2023-03-09] MEDS: ATORVASTATIN CALCIUM 40 MG TABLET 80 MG PO (08:39)
[2023-03-09] MEDS: APIXABAN 5 MG TABLET PO ×2 (08:39→23:11)
[2023-03-09] MEDS: BUMETANIDE 10 MG in 0.9 % SODIUM CHLORIDE 160 ML 20 MG IV (08:40)
[2023-03-09] MEDS: INSULIN ASPART 300 UNIT/3 ML PEN SUBQ ×3 (08:41→17:22)
[2023-03-09] MEDS: LISINOPRIL 10 MG TABLET 20 MG PO (08:41)
[2023-03-09] MEDS: INSULIN DETEMIR 300 UNIT/3 ML INSULN.PEN 44 UNIT SUBQ ×2 (08:41→23:15)
--- NOTE | 2023-03-09 10:17 | RESP.RT ---
decreased to 2 LPM NC
[2023-03-09 10:53] LABS: Glucometer 246 mg/dL (74-106)
--- NOTE | 2023-03-09 12:31 | P.CACN_ITS ---
History of Present Illness History of Present Illness Consult date: 03/09/23 Requesting physician: Beth Hercules Chief complaint: Intractable Low Back Pain Narrative: Patient with a history of low back pain presented to the emergency room with increasing low back pain. Given couple medications in the emergency room which resulted in significant hypoxia. Unable to improve in the emergency room and patient with pain not improved either she was admitted for observation Per last office note: h/o HTN, AF and HFpEF The patient state his back pain is better as long as he gets pain meds. He describes epigastic pain 'when my back spasms'. He is also tender in the epigastrium. No exertional pain. Pain on ambulating due to back pain. The pain is decribed as a pressure like sensation, no radiation, no accompanying SOB (other than baseline), no nausea, no sweats EKG showed no significant ST T wave changes No Troponins to review Echo pending [facility] Medical History (Updated 03/09/23 @ 12:37 by Gertrude Tadeo MD) A-fib ?I48.91 - Unspecified atrial fibrillation (ICD-10) Acid reflux ?K21.9 - Gastro-esophageal reflux disease without esophagitis (ICD-10) Anemia ?D64.9 - Anemia, unspecified (ICD-10) Chronic pain syndrome ?G89.4 - Chronic pain syndrome (ICD-10) COPD (chronic obstructive pulmonary disease) ?J44.9 - Chronic obstructive pulmonary disease, unspecified (ICD-10) Diabetes ?E11.9 - Type 2 diabetes mellitus without complications (ICD-10) Enlarged prostate ?N40.0 - Benign prostatic hyperplasia without lower urinary tract symptoms ( ICD-10) Fibromyalgia ?M79.7 - Fibromyalgia (ICD-10) High cholesterol ?E78.00 - Pure hypercholesterolemia, unspecified (ICD-10) Kidney failure ?N19 - Unspecified kidney failure (ICD-10) Sleep apnea ?G47.30 - Sleep apnea, unspecified (ICD-10) Surgical History (Updated 03/06/23 @ 17:09 by Hui Peralta LPN) History of arthroplasty of right shoulder ?Z96.611 - Presence of right artificial shoulder joint (ICD-10) History of hernia repair ?Z98.890 - Other specified postprocedural states (ICD-10) ?Z87.19 - Personal history of other diseases of the digestive system (ICD-10) History of right hip replacement ?Z96.641 - Presence of right artificial hip joint (ICD-10) Family History (Updated 03/06/23 @ 17:03 by Hui Peralta LPN) Brother Family history of cancer Social History Within the past year, how often did you have a drink containing alcohol: monthly or less Within the past year, how many standard drinks containing alcohol did you have on a typical day: 1 or 2 Within the past year, how often did you have six or more drinks on one occasion: never Total score: 0 Score interpretation: A score less than 4 is consistent with normal alcohol consumption. Smoking status: Former smoker Second hand tobacco smoke exposure: No Non-prescribed substance use: denies use Known occupational exposures/hazards: No Highest level of school completed/degree received: some college, no degree Do you want help with school or training: No Are you now , , , , never or living with a partner: In a typical week, how many times do you talk on the telephone with family, friends, or neighbors: twice per week How often do you get together with friends or relatives: twice per week How often do you attend religious or quaker services: never Do you belong to any clubs or organizations such as religious groups unions, fraternal or athletic groups, or school groups: yes Total score: 3 Score interpretation: A score of greater than or equal to 2 indicates the lowest level of social isolation. Little interest or pleasure in doing things: not at all Feeling down, depressed, or hopeless: not at all Feel stressed/tense/nervous/anxious/difficulty sleeping: not at all Due to disability, difficulty making decisions: No Do you think of yourself as: straight/heterosexual Gender Identity: male Meds Home Medications and Allergies Home Medications Medication Instructions Recorded Confirmed Type allopurinol 100 mg tablet 100 mg PO DAILY 01/16/23 03/08/23 History apixaban 5 mg tablet (Eliquis) 5 mg PO Q12H 01/16/23 03/08/23 History aspirin 81 mg tablet,delayed 81 mg PO DAILY 01/16/23 03/08/23 History release (Adult Aspirin Regimen) atorvastatin 80 mg tablet (Lipitor) 80 mg PO DAILY 01/16/23 03/08/23 History bumetanide 1 mg tablet 1 mg PO DAILY 01/16/23 03/08/23 History carvedilol 25 mg tablet 37.5 mg PO Q12H 01/16/23 03/08/23 History clonidine HCl 0.2 mg tablet 0.2 mg PO TID 01/16/23 03/08/23 History ferrous sulfate 325 mg (65 mg 325 mg PO BID 01/16/23 03/08/23 History iron) tablet (FeroSul) hydralazine 100 mg tablet 100 mg PO Q8H 01/16/23 03/08/23 History insulin glargine 100 unit/mL 44 unit subcut BID 01/16/23 03/08/23 History subcutaneous solution (Lantus U-100 Insulin) lisinopril 10 mg tablet 20 mg PO DAILY 01/16/23 03/08/23 History montelukast 10 mg tablet 10 mg PO DAILY 01/16/23 03/08/23 History omeprazole 40 mg capsule,delayed 40 mg PO DAILY 01/16/23 03/08/23 History release pregabalin 100 mg capsule 100 mg PO Q12H 01/16/23 03/08/23 History sertraline 100 mg tablet (Zoloft) 150 mg PO DAILY 01/16/23 03/08/23 History tamsulosin 0.4 mg capsule 0.4 mg PO Q24H 01/16/23 03/08/23 History tiotropium 2.5 mcg-olodaterol 2.5 2 puff inhalation Q24H 01/16/23 03/08/23 History mcg/actuation mist for inhalation (Stiolto Respimat) tizanidine 4 mg tablet 4 mg PO QDAY 01/16/23 03/08/23 History vitamin X30-xedkllbbk factor 110 1 cap PO DAILY 01/16/23 03/08/23 History mg-0.5 mg capsule oxycodone-acetaminophen 7.5 mg-325 1 tab PO BID PRN pain #60 tabs 02/01/23 03/08/23 Rx mg tablet (Percocet) tizanidine 4 mg tablet 8 mg PO .QHS 03/06/23 03/08/23 History Allergies Allergy/AdvReac Type Severity Reaction Status Date / Time epoetin [place] [From Procrit] Allergy Verified 02/13/23 09:44 ertapenem [From Invanz] Allergy Verified 02/13/23 09:44 Penicillins Allergy Verified 02/13/23 09:44 Sulfa (Sulfonamide Allergy Verified 02/13/23 09:44 Antibiotics) Exam Constitutional Vital Signs, click to edit/add: Last Vital Signs Temp 98.2 F 03/09/23 05:55 Pulse 98 H 03/09/23 05:55 Resp 22 03/09/23 05:55 BP 148/73 H 03/09/23 05:55 Pulse Ox 97 03/09/23 11:56 O2 Del Method Nasal Cannula 03/09/23 10:16 O2 Flow Rate 3 03/09/23 10:16 Results Labs and Meds Lab results: Cardiac Enzymes 03/08/23 03/09/23 Range/Units 14:45 04:51 AST 35 32 (15-37) U/L CBC 03/08/23 03/09/23 Range/Units 14:45 04:51 WBC 18.5 H 10.4 (4.0-11.0) 10^3/uL RBC 3.88 L 3.80 L (4.70-6.10) 10^6/uL Hgb 10.1 L 10.1 L (14.0-18.0) g/dL Hct 34.8 L 33.2 L (42.0-54.0) % Plt Count 164 138 L (150-450) 10^3/uL Neut # (Auto) 16.8 H 8.6 H (1.4-6.5) 10^3/uL Lymph # (Auto) 0.4 L 0.4 L (1.2-3.8) 10^3/uL Greer # (Auto) 1.0 H 0.5 (0.3-0.8) 10^3/uL Eos # (Auto) 0.0 0.0 (0.0-0.7) 10^3/uL Baso # (Auto) 0.0 0.0 (0.0-0.1) 10^3/uL Comprehensive Metabolic Panel 03/08/23 03/09/23 Range/Units 14:45 04:51 Sodium 140 137 (136-145) mmol/L Potassium 4.1 4.1 (3.5-5.1) mmol/L Chloride 101 102 (98-107) mmol/L Carbon Dioxide 26.1 25.9 (21.0-32.0) mmol/L BUN 54.0 H 61.0 H (7.0-18.0) mg/dL Creatinine 1.70 H 1.69 H (0.70-1.30) mg/dL Glucose 123 H 170 H (74-106) mg/dL Calcium 8.7 9.0 (8.5-10.1) mg/dL AST 35 32 (15-37) U/L ALT 35 19 (16-63) U/L Alkaline Phosphatase 106 104 (46-116) U/L Total Protein 7.3 6.8 (6.4-8.2) g/dL Albumin 3.1 L 2.6 L (3.4-5.0) g/dL Intake and Output 03/08/23 03/09/23 03/09/23 23:59 07:59 15:59 Intake Total 150 / 950 800 / 950 240 / 240 Balance 150 / 950 800 / 950 240 / 240 Intake: Oral 800 / 800 240 / 240 IV 150 / 150 Levofloxacin in Dextrose 5 % 150 / 150 750 mg In 150 ml @ 100 mls/hr IV Q24H [facility] Rx#:[id number] Other: # Voids 1 1 # Unmeasured Voids 1 # Bowel Movements 1 Weight 158.5 kg Imaging and Cardiology Echo: other (Echo 05/05/2021 EF 60-65%, biatrial enlaregemtn, RV mildly dilated, nml function, mild TR, mild MR, mildly elevtaed RVSP, ascending aorta mildly enlarged) EKG Interpretation EKG: not changed from: ( Test Date: 2023-03-09 Pat Name: DENNY BRADY Department: Room: Gender: Male [employer]: : 1960 Requested By: BETH HERCULES Order Number: [id number] R) Assessment and Plan Assessment and Plan (1) Intractable back pain: (2) Muscle spasm: (3) Obesity: (4) A-fib: (5) Anemia: (6) COPD (chronic obstructive pulmonary disease): (7) Sleep apnea: (8) Chest pain: Assessment and Plan: NON CARDIAC: likely related to referred pain from back and epigastic pain d.t esophageal spasm/GERD etc.... (9) CAD (coronary artery disease): Assessment and Plan: MILD on prior cath Qualifiers: Coronary Disease-Associated Artery/Lesion type: [place] artery [place] vs. transplanted heart: [place] heart (10) Pulmonary hypertension: (11) Lymphedema: (12) Paroxysmal atrial fibrillation: (13) Hypertension: Plan 1. Routine labs: Troponin, CRP, ESR 2. Echocardiogram pending 3. treat non cardiac comorbidities as appropriate 4. Continue optimal medical rx for mild CAD: ASA, statin, BBlocker and and PIA-I if diabetic 5. Would not pursue further cardiovascular testing for pain unless echocardiogram reveals significant abnormalities (e.g wall motion abnormalities, significantly reduced EF%) 6. 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
[2023-03-09 13:36] LABS: Free T3 2.04 pg/mL (2.18-3.98); Magnesium 2.1 mg/dL (1.8-2.4); Thyroid Stimulating Hormone 0.297 uIU/mL (0.358-3.740)
--- NOTE | 2023-03-09 15:07 | CM.NOTE ---
Important Message From Medicare discussed with pt, pt verbalizes understanding and signs paper. Original given to pt and copy placed on pt's chart.
[2023-03-09 17:27] LABS: Glucometer 160 mg/dL (74-106)
[2023-03-09 21:31] LABS: Glucometer 160 mg/dL (74-106)
[2023-03-09] MEDS: LEVOFLOXACIN IN DEXTROSE 5 % 750 MG/150 ML IV.SOLN 100 MG IV (23:12)
[2023-03-10] VITALS (17 sets, daily range): BP systolic 101–148; BP diastolic 62–83; PULSE 77–86; RESP 18–24; TEMP 36.7–36.8; O2SAT 90–99
[2023-03-10] MEDS: KETOROLAC TROMETHAMINE 30 MG/ML VIAL IVP ×5 (00:53→23:19)
[2023-03-10] MEDS: METHYLPREDNISOLONE SOD SUCC PF 125 MG/2 ML VIAL IVP ×5 (00:54→23:19)
[2023-03-10 01:24] LABS: Bilirubin Urine NEGATIVE (NEGATIVE); Blood Urine NEGATIVE (NEGATIVE); Clarity Urine CLEAR (CLEAR); Color Urine YELLOW (YELLOW); Glucose Urine UA NEGATIVE (NEGATIVE); Ketones Urine NEGATIVE (NEGATIVE); Leukocyte Esterase Urine NEGATIVE (NEGATIVE); Nitrite Urine NEGATIVE (NEGATIVE); Protein Urine NEGATIVE (NEG/TRACE); Specific Gravity Urine 1.015 (1.005-1.025); Urobilinogen Urine 0.2 EU/dL (0.2-1.0); pH Urine 5.5 (5.0-9.0)
[2023-03-10 01:28] LABS: WBC Urine NONE SEEN #/HPF (NONE SEEN)
[2023-03-10 01:29] LABS: Bacteria Urine NONE SEEN #/HPF (NONE SEEN); Cast Seen? NONE SEEN #/LPF (NONE SEEN); Crystals Seen? None Seen #/HPF (None Seen); Mucus Urine NONE SEEN (NONE SEEN); RBC Urine 0-2 #/HPF (0-2); Squamous Epithelial Cell Urine NONE SEEN #/LPF (NONE/RARE)
[2023-03-10] MEDS: IPRATROPIUM/ALBUTEROL SULFATE 3 ML AMPUL.NEB IH ×4 (05:01→22:12)
[2023-03-10 05:32] LABS: Basophils Percent Auto 0.1 % (0.2-2.0); Hematocrit 31.2 % (42.0-54.0); Hemoglobin 9.5 g/dL (14.0-18.0); Immature Granulocytes Abs Auto 0.04 10^3/uL (0.00-0.03); Immature Granulocytes Pct Auto 0.4 % (0.0-0.5); Lymphocytes Absolute Auto 0.4 10^3/uL (1.2-3.8); Lymphocytes Percent Auto 4.2 % (20.5-60.0); Mean Corpuscular HGB Conc 30.4 g/dL (29.9-35.2); Mean Corpuscular Volume 85.2 fL (80.0-94.0); Mean Platelet Volume 11.3 fL (9.5-13.5); Monocytes Absolute Auto 0.5 10^3/uL (0.3-0.8); Monocytes Percent Auto 5.3 % (1.7-12.0); Neutrophils Absolute Auto 8.6 10^3/uL (1.4-6.5); Platelet Count 133 10^3/uL (150-450); Red Blood Count 3.66 10^6/uL (4.70-6.10); Red Cell Distribution Width 16.5 % (11.0-15.0); White Blood Count 9.5 10^3/uL (4.0-11.0)
[2023-03-10 05:41] LABS: Magnesium 2.1 mg/dL (1.8-2.4)
[2023-03-10 05:50] LABS: Alanine Aminotransferase 61 U/L (16-63); Albumin Globulin Ratio 0.6; Albumin Level 2.2 g/dL (3.4-5.0); Alkaline Phosphatase 143 U/L (46-116); Anion Gap 13.6; Aspartate Amino Transferase 52 U/L (15-37); BUN Creatinine Ratio 38.9; Bilirubin Total 0.5 mg/dL (0.2-1.0); Calcium 8.6 mg/dL (8.5-10.1); Carbon Dioxide 25.3 mmol/L (21.0-32.0); Chloride 103 mmol/L (98-107); Estimated GFR (African America 42 (>=60); Estimated GFR (Non-African Ame 34 (>=60); Glucose 182 mg/dL (74-106); Potassium 3.9 mmol/L (3.5-5.1); Sodium 138 mmol/L (136-145); Total Protein 6.2 g/dL (6.4-8.2)
[2023-03-10] MEDS: OXYCODONE HCL 5 MG TABLET 2.5 MG PO (05:59)
[2023-03-10] MEDS: OMEPRAZOLE 40 MG CAPSULE.DR PO (06:01)
[2023-03-10] MEDS: OXYCODONE HCL/ACETAMINOPHEN 5MG/325MG 1 TAB PO (06:01)
[2023-03-10] MEDS: CLONIDINE HCL 0.2 MG TABLET PO ×2 (06:02→21:11)
[2023-03-10] MEDS: HYDRALAZINE HCL 50 MG TABLET 100 MG PO ×2 (06:13→21:17)
[2023-03-10 07:16] LABS: Glucometer 167 mg/dL (74-106)
--- NOTE | 2023-03-10 07:48 | P.PN_ITS ---
Progress Note: Subjective Subjective Interval history: Breathing feels better. Pain persisting low back rating about a 7. States had good urine output, better than most days. Exam Constitutional Vital Signs, click to edit/add: Last Vital Signs Temp 98.2 F 03/10/23 05:10 Pulse 82 03/10/23 05:10 Resp 18 03/10/23 05:10 BP 134/62 03/10/23 06:13 Pulse Ox 93 L 03/10/23 06:00 O2 Del Method Room Air 03/10/23 05:10 O2 Flow Rate 3 03/09/23 10:16 Documenting provider has reviewed patient's vital signs: yes Common normals: apparent distress and negative for healthy appearing General appearance: in distress; not comfortable Nutritional appearance: obese HENMT Common normals: moist oral mucous membranes Lymph Lymphatic: lymphedema Chest Common normals: inspection of chest normal; palpation of chest abnormal (Chest pain on palpation but he describes this is not the same chest pain he) Respiratory Common normals: abnormal respiratory effort, use of accessory muscles and not clear to ascultation bilaterally Auscultation: rales, rhonchi and wheezes Cardio Common normals: regular rate Rhythm: regular rhythm GI Inspection: abnormal to inspection (Morbidly obese) Extremity Other: Bilateral lower extremity edema, worse than last visit Progress Note: Objective Labs Labs: Short CBC 03/10/23 Range/Units 04:32 WBC 9.5 (4.0-11.0) 10^3/uL Hgb 9.5 L (14.0-18.0) g/dL Hct 31.2 L (42.0-54.0) % Plt Count 133 L (150-450) 10^3/uL BMP 03/10/23 04:32 Sodium 138 Potassium 3.9 Chloride 103 Carbon Dioxide 25.3 BUN 77.0 H* Creatinine 1.98 H Glucose 182 H Calcium 8.6 Liver Function 03/10/23 Range/Units 04:32 Total Bilirubin 0.5 (0.2-1.0) mg/dL AST 52 H (15-37) U/L ALT 61 (16-63) U/L Alkaline Phosphatase 143 H (46-116) U/L Albumin 2.2 L (3.4-5.0) g/dL Urine 03/09/23 Range/Units 00:51 Urine Color Yellow (YELLOW) Urine Clarity Clear (CLEAR) Urine pH 5.5 (5.0-9.0) Ur Specific [place] 1.015 (1.005-1.025) Urine Protein Negative (NEG/TRACE) mg/dL Urine Glucose (UA) Negative (NEGATIVE) mg/dL Progress Note: A&P Assessment and Plan (1) Intractable back pain: (2) Muscle spasm: (3) Obesity: (4) A-fib: (5) Anemia: (6) COPD (chronic obstructive pulmonary disease): (7) Sleep apnea: (8) Chest pain: (9) CAD (coronary artery disease): Qualifiers: Coronary Disease-Associated Artery/Lesion type: [place] artery [place] vs. transplanted heart: [place] heart (10) Pulmonary hypertension: (11) Lymphedema: (12) Paroxysmal atrial fibrillation: (13) Hypertension: Plan Acute hypoxic respiratory failure requiring 4 L of supplemental oxygen-started on antibiotics yesterday secondary to the leukocytosis, white blood cell count is improved today. Able to wean his supplemental oxygen down to 3 L this morning. Chest x-ray was clear. CTA was done at last admission, and patient has been taking his anticoagulant so PE is unlikely. Most likely has acute exacerbation of COPD secondary to acute bronchitis-continue with current antibiotic therapy. Aerosols. Overall improved Elevated BNP with possible acute combined congestive heart failure, rales in lungs with increasing peripheral edema-checking on echocardiogram. He states he had good urine output. Maybe not all documented. Edema is less than previous day. Breathing overall improved. Able to wean off of his supplemental oxygen Chest pain-somewhat reproducible but not his pain getting with ambulation. Check echocardiogram, work-up negative so far for ischemic cardiomyopathy Thrombocytopenia-likely secondary to the above-continue to follow Intractable low back pain-on steroids, Toradol, Norflex, pain from a 10 down to a 6 this morning. We will try to traction physical therapy assessment. Patient I believe in need of rehab. Not improving like previous visit Bilateral lower extremity venous insufficiency versus lymphedema. Edema better today Chronic kidney disease stage II-as anticipated is worse today. Hold off on further diuresis. Iron deficiency anemia-monitor daily. Stable so far. History of hypomagnesemia-continue to monitor Atrial fibrillation-rate controlled Hypertension-continue with home medication as-blood pressure somewhat elevated on admission so uncontrolled hypertension, improved currently IDDM-insulin sliding scale and maintain home medications Morbid obesity-diet management Maintain current inpatient status. Continue with aerosol treatments. Physical therapy evaluation. For patient safety he could benefit from placement in rehab.
[2023-03-10] MEDS: INSULIN ASPART 300 UNIT/3 ML PEN SUBQ (08:54)
[2023-03-10] MEDS: ORPHENADRINE 60 MG/ 2 ML VIAL IV ×2 (08:55→21:11)
[2023-03-10] MEDS: INSULIN DETEMIR 300 UNIT/3 ML INSULN.PEN 44 UNIT SUBQ (08:55)
[2023-03-10] MEDS: MONTELUKAST SODIUM 10 MG TABLET PO (08:56)
[2023-03-10] MEDS: ATORVASTATIN CALCIUM 40 MG TABLET 80 MG PO (08:56)
[2023-03-10] MEDS: ALLOPURINOL 100 MG TABLET PO (08:56)
[2023-03-10] MEDS: BUMETANIDE 1 MG TABLET PO (08:56)
[2023-03-10] MEDS: L. ACIDOPHILUS/L.BULGARICUS 1 PACKET GRAN.PACK PO ×2 (08:57→21:11)
[2023-03-10] MEDS: ASPIRIN 81 MG TABLET.DR PO (08:57)
[2023-03-10] MEDS: LISINOPRIL 10 MG TABLET 20 MG PO (08:57)
[2023-03-10] MEDS: TAMSULOSIN HCL 0.4 MG CAPSULE PO (08:57)
[2023-03-10] MEDS: FERROUS SULFATE 325 MG TABLET PO ×2 (08:57→21:12)
[2023-03-10] MEDS: SERTRALINE HCL 100 MG TABLET 150 MG PO (08:57)
[2023-03-10] MEDS: CARVEDILOL 25 MG TABLET 37.5 MG PO ×2 (08:57→21:12)
[2023-03-10] MEDS: APIXABAN 5 MG TABLET PO ×2 (08:57→21:17)
[2023-03-10] MEDS: PREGABALIN 100 MG CAPSULE PO ×2 (09:17→21:11)
[2023-03-10 10:57] LABS: Glucometer 181 mg/dL (74-106)
--- NOTE | 2023-03-10 14:18 | CM.NOTE ---
Spoke with Mr. Restrepo regarding P.T. recommendation for Home Health. Mr. Looneyles agreeable to Home Health. Chose [facility] from the Medicare 5 star rating. Clinical faxed to [facility]. Physician aware of plan.
--- NOTE | 2023-03-10 15:18 | CM.NOTE ---
[facility] unable to accept. Referral sent to [facility] second choice. Will call back once referral reviewed.
--- NOTE | 2023-03-10 15:27 | CM.NOTE ---
Spoke with Mr. Restrepo regarding referral to [facility] and unable to accept. Let him know [facility] is reviewing the referral as his second choice. Mr. Restrepo agreeable to [facility] as his second choice.
[2023-03-10 16:05] LABS: Glucometer 121 mg/dL (74-106)
--- NOTE | 2023-03-10 16:21 | CM.NOTE ---
[facility] able to accept pt at discharge for home health services. Pt informed of [facility] accepting him as pt at discharge.
[2023-03-10 20:48] LABS: Glucometer 126 mg/dL (74-106)
[2023-03-10] MEDS: LEVOFLOXACIN IN DEXTROSE 5 % 750 MG/150 ML IV.SOLN 100 MG IV (21:11)
--- NOTE | 2023-03-10 22:30 | RESP.RT ---
2 lpm running at wall for home CPAP bleed in
[2023-03-11] VITALS (10 sets, daily range): BP systolic 100–127; BP diastolic 52–72; PULSE 73–78; RESP 18–24; TEMP 36.4–36.7; O2SAT 90–93
[2023-03-11] MEDS: IPRATROPIUM/ALBUTEROL SULFATE 3 ML AMPUL.NEB IH ×3 (04:39→16:41)
[2023-03-11] MEDS: METHYLPREDNISOLONE SOD SUCC PF 125 MG/2 ML VIAL IVP ×3 (04:46→18:21)
[2023-03-11] MEDS: KETOROLAC TROMETHAMINE 30 MG/ML VIAL IVP ×3 (04:46→18:21)
[2023-03-11] MEDS: HYDRALAZINE HCL 50 MG TABLET 100 MG PO (04:46)
[2023-03-11] MEDS: OMEPRAZOLE 40 MG CAPSULE.DR PO (04:47)
[2023-03-11] MEDS: CLONIDINE HCL 0.2 MG TABLET PO ×2 (04:47→14:18)
[2023-03-11 05:01] LABS: Basophils Percent Auto 0.1 % (0.2-2.0); Hemoglobin 10.3 g/dL (14.0-18.0); Immature Granulocytes Abs Auto 0.13 10^3/uL (0.00-0.03); Immature Granulocytes Pct Auto 0.7 % (0.0-0.5); Lymphocytes Absolute Auto 0.8 10^3/uL (1.2-3.8); Lymphocytes Percent Auto 4.2 % (20.5-60.0); Mean Corpuscular HGB Conc 29.4 g/dL (29.9-35.2); Mean Corpuscular Hemoglobin 25.4 pg (25.9-34.0); Mean Corpuscular Volume 86.4 fL (80.0-94.0); Mean Platelet Volume 11.6 fL (9.5-13.5); Monocytes Absolute Auto 0.7 10^3/uL (0.3-0.8); Neutrophils Absolute Auto 16.2 10^3/uL (1.4-6.5); Platelet Count 181 10^3/uL (150-450); Red Blood Count 4.05 10^6/uL (4.70-6.10); Red Cell Distribution Width 16.6 % (11.0-15.0); White Blood Count 17.9 10^3/uL (4.0-11.0)
[2023-03-11 06:00] LABS: Magnesium 2.4 mg/dL (1.8-2.4)
[2023-03-11 06:09] LABS: Alanine Aminotransferase 78 U/L (16-63); Albumin Globulin Ratio 0.5; Albumin Level 2.3 g/dL (3.4-5.0); Alkaline Phosphatase 157 U/L (46-116); Anion Gap 17.5; Aspartate Amino Transferase 62 U/L (15-37); BUN Creatinine Ratio 34.6; Bilirubin Total 0.5 mg/dL (0.2-1.0); Calcium 8.8 mg/dL (8.5-10.1); Carbon Dioxide 21.6 mmol/L (21.0-32.0); Chloride 103 mmol/L (98-107); Estimated GFR (African America 27 (>=60); Estimated GFR (Non-African Ame 22 (>=60); Globulin 4.3 g/dL; Glucose 111 mg/dL (74-106); Potassium 4.1 mmol/L (3.5-5.1); Sodium 138 mmol/L (136-145); Total Protein 6.6 g/dL (6.4-8.2)
[2023-03-11] MEDS: FERROUS SULFATE 325 MG TABLET PO ×2 (09:31→19:55)
[2023-03-11] MEDS: ASPIRIN 81 MG TABLET.DR PO (09:31)
[2023-03-11] MEDS: OXYCODONE HCL/ACETAMINOPHEN 5MG/325MG 1 TAB PO (09:31)
[2023-03-11] MEDS: ATORVASTATIN CALCIUM 40 MG TABLET 80 MG PO (09:31)
[2023-03-11] MEDS: SERTRALINE HCL 100 MG TABLET 150 MG PO (09:31)
[2023-03-11] MEDS: PREGABALIN 100 MG CAPSULE PO ×2 (09:31→19:55)
[2023-03-11] MEDS: ORPHENADRINE 60 MG/ 2 ML VIAL IV ×2 (09:31→19:55)
[2023-03-11] MEDS: OXYCODONE HCL 5 MG TABLET 2.5 MG PO (09:32)
[2023-03-11] MEDS: ALLOPURINOL 100 MG TABLET PO (09:32)
[2023-03-11] MEDS: TAMSULOSIN HCL 0.4 MG CAPSULE PO (09:32)
[2023-03-11] MEDS: LISINOPRIL 10 MG TABLET 20 MG PO (09:32)
[2023-03-11] MEDS: L. ACIDOPHILUS/L.BULGARICUS 1 PACKET GRAN.PACK PO ×2 (09:32→19:55)
[2023-03-11] MEDS: MONTELUKAST SODIUM 10 MG TABLET PO (09:32)
[2023-03-11] MEDS: APIXABAN 5 MG TABLET PO ×2 (09:36→19:55)
[2023-03-11] MEDS: CARVEDILOL 25 MG TABLET 37.5 MG PO (09:36)
[2023-03-11] MEDS: INSULIN DETEMIR 300 UNIT/3 ML INSULN.PEN 44 UNIT SUBQ (09:36)
--- NOTE | 2023-03-11 09:44 | P.DS_ITS ---
DS: Providers Provider Date of admission: 03/09/23 07:56 Primary care physician: MARIAJOSE GAY Consults: 03/08/23 17:27 Occupational Therapy Eval and Treat Routine Reason for consultation: Only if needed for Rehab Has provider been notified: No Physical Therapy Eval and Treat Routine Reason for consultation: Eval and Treat Has provider been notified: No 03/09/23 07:56 Consult to Steam Clothes Press Operator Routine Reason for consult:: Usp Other reason:: placement if deemed appropriate by PT 03/09/23 07:58 Consult to Cardiology Routine Reason for consultation: cp Has provider been notified: No 03/10/23 Physical Therapy Eval and Treat Routine Reason for consultation: Weakness, Back Pain Has provider been notified: Yes DS: Diagnosis Discharge Diagnosis (1) Intractable back pain: (2) Muscle spasm: (3) Obesity: (4) A-fib: (5) Anemia: (6) COPD (chronic obstructive pulmonary disease): (7) Sleep apnea: (8) Chest pain: (9) CAD (coronary artery disease): Qualifiers: Coronary Disease-Associated Artery/Lesion type: [place] artery [place] vs. transplanted heart: [place] heart (10) Pulmonary hypertension: (11) Lymphedema: (12) Paroxysmal atrial fibrillation: (13) Hypertension: Plan Acute hypoxic respiratory failure requiring 4 L of supplemental oxygen-started on antibiotics yesterday secondary to the leukocytosis, white blood cell count is improved today. Able to wean his supplemental oxygen down to 3 L this morning. Chest x-ray was clear. CTA was done at last admission, and patient has been taking his anticoagulant so PE is unlikely. Most likely has acute exacerbation of COPD secondary to acute bronchitis Elevated BNP with possible acute combined congestive heart failure, rales in osw[place] ngs with increasing peripheral edema- Chest pain-somewhat reproducible but not his pain getting with ambulation. Thrombocytopenia Intractable low back pain- Bilateral lower extremity venous insufficiency versus lymphedema. Chronic kidney disease stage II Iron deficiency anemia History of hypomagnesemia Atrial fibrillation Hypertension IDDM Morbid obesity DS: Summary Hospital Course Hospital Course: Patient presented to emergency room with increasing shortness of breath and intractable low back pain. Recent discharge. In ER found to have acute exacerbation of COPD with significant hypoxia with O2 saturations less than 88%, saturations did improve but required 4 L of supplemental oxygen. Patient was started on IV antibiotics, aerosol treatments, steroids. Over the first 24 hours he was able to be weaned off of his supplemental oxygen but significant dyspnea persisted. With failed outpatient treatment he was a kept 1 additional day. White blood cell count also initially elevated, improved yesterday but is back elevated today. I suspect this may be secondary to steroid use as patient overall condition is improving. Possible acute combined congestive heart failure with peripheral edema, rales on lungs and elevated BNP. BNP is improved today. Creatinine is significantly elevated this is likely secondary to diuresis from previous day. LFTs also elevated likely secondary to passive congestion. Mild hypothyroidism noted to monitor as an outpatient. Overall patient is improved today ambulating better. He has pain medications at home. He will be discharged home on steroids which should help his low back as well as the COPD. Medications see list. Follow-up with PCP next week. Status at Discharge Overall status at discharge: patient is not back to baseline Time Spent with Patient Time attestation: Total time spent providing and/or coordinating discharge services: Exam Constitutional Vital Signs, click to edit/add: Last Vital Signs Temp 98.0 F 03/11/23 04:10 Pulse 73 03/11/23 04:39 Resp 18 03/11/23 04:39 BP 127/72 03/11/23 04:10 Pulse Ox 93 L 03/11/23 04:39 O2 Del Method Room Air 03/11/23 04:39 O2 Flow Rate 3 03/09/23 10:16 Documenting provider has reviewed patient's vital signs: yes Common normals: apparent distress and negative for healthy appearing General appearance: in distress; not comfortable Nutritional appearance: obese HENMT Common normals: moist oral mucous membranes Lymph Lymphatic: lymphedema Chest Common normals: inspection of chest normal; palpation of chest abnormal (Chest pain on palpation but he describes this is not the same chest pain he) Respiratory Common normals: abnormal respiratory effort, use of accessory muscles and not clear to ascultation bilaterally Auscultation: no rales, no rhonchi and no wheezes Cardio Common normals: regular rate Rhythm: regular rhythm GI Inspection: abnormal to inspection (Morbidly obese) Extremity Other: Bilateral lower extremity edema, worse than last visit DS: Data Data Completed and Pending Labs on day of discharge: Labs from last 24 hours 03/11/23 03/10/23 03/10/23 04:10 20:46 16:04 WBC 17.9 H RBC 4.05 L Hgb 10.3 L Hct 35.0 L MCV 86.4 MCH 25.4 L MCHC 29.4 L RDW 16.6 H Plt Count 181 MPV 11.6 Neut % (Auto) 91.0 H Lymph % (Auto) 4.2 L [place] % (Auto) 4.0 Eos % (Auto) 0.0 L Baso % (Auto) 0.1 L Neut # (Auto) 16.2 H Lymph # (Auto) 0.8 L [place] # (Auto) 0.7 Eos # (Auto) 0.0 Baso # (Auto) 0.0 Abs Immat Gran (auto) 0.13 H Imm/Tot Granulo (auto) 0.7 H Sodium 138 Potassium 4.1 Chloride 103 Carbon Dioxide 21.6 Anion Gap 17.5 BUN 100.0 H* Creatinine 2.89 H Est GFR ( Amer) 27 L Est GFR (Non-Af Amer) 22 L BUN/Creatinine Ratio 34.6 Glucose 111 H Calcium 8.8 Magnesium 2.4 Total Bilirubin 0.5 AST 62 H ALT 78 H Alkaline Phosphatase 157 H NT-Pro-B Natriuret Pep 2961.0 H* Total Protein 6.6 Albumin 2.3 L Globulin 4.3 Albumin/Globulin Ratio 0.5 POC Glucose 126 H 121 H 03/10/23 10:56 WBC RBC Hgb Hct MCV MCH MCHC RDW Plt Count MPV Neut % (Auto) Lymph % (Auto) [place] % (Auto) Eos % (Auto) Baso % (Auto) Neut # (Auto) Lymph # (Auto) [place] # (Auto) Eos # (Auto) Baso # (Auto) Abs Immat Gran (auto) Imm/Tot Granulo (auto) Sodium Potassium Chloride Carbon Dioxide Anion Gap BUN Creatinine Est GFR ( Amer) Est GFR (Non-Af Amer) BUN/Creatinine Ratio Glucose Calcium Magnesium Total Bilirubin AST ALT Alkaline Phosphatase NT-Pro-B Natriuret Pep Total Protein Albumin Globulin Albumin/Globulin Ratio POC Glucose 181 H Discharge Plan Discharge Disposition: Home Health Service Condition: Good Discharge Medications: New levofloxacin 750 mg tablet 750 mg PO Q24H 10 Days Qty: 10 0RF prednisone 10 mg tablet 50 mg PO DAILY Qty: 47 0RF Rx Instructions: 5/day for 3 days. 4/day for 3 days, 3/day for 3 days, 2/day for 3 days, 1/day for 3 days, 1/2 /day for 4 days Continued oxycodone-acetaminophen [Percocet] 7.5-325 mg tablet 1 tab PO BID PRN (Reason: pain) Qty: 60 0RF allopurinol 100 mg tablet 100 mg PO DAILY Eliquis 5 mg tablet 5 mg PO Q12H aspirin [Adult Aspirin Regimen] 81 mg tablet,delayed release (DR/EC) 81 mg PO DAILY bumetanide 1 mg tablet 1 mg PO DAILY clonidine HCl 0.2 mg tablet 0.2 mg PO TID carvedilol 25 mg tablet 37.5 mg PO Q12H ferrous sulfate [FeroSul] 325 mg (65 mg iron) tablet 325 mg PO BID tamsulosin 0.4 mg capsule 0.4 mg PO Q24H insulin glargine [Lantus U-100 Insulin] 100 unit/mL solution 44 unit subcut BID atorvastatin [Lipitor] 80 mg tablet 80 mg PO DAILY montelukast 10 mg tablet 10 mg PO DAILY Stiolto Respimat 2.5-2.5 mcg/actuation mist 2 puff INHALATION Q24H vitamin [id number] factor 110-0.5 mg capsule 1 cap PO DAILY tizanidine 4 mg tablet 4 mg PO QDAY sertraline [Zoloft] 100 mg tablet 150 mg PO DAILY hydralazine 100 mg tablet 100 mg PO Q8H omeprazole 40 mg capsule,delayed release(DR/EC) 40 mg PO DAILY pregabalin 100 mg capsule 100 mg PO Q12H tizanidine 4 mg tablet 8 mg PO .QHS Rx Instructions: do not exceed 3 doses per 24 hrs Discontinued lisinopril 10 mg tablet 20 mg PO DAILY Activity: resume usual activities as tolerated Diet: advance to your usual diet Patient Instructions: Prednisone (By mouth), Levofloxacin (By mouth), COPD (Chronic Obstructive Pulmonary Disease) (DC) Forms: Portal Instructions Follow Up Appointments: Please call and schedule a follow up appt with Dr. Castaneda within one week [phone]
--- NOTE | 2023-03-11 10:02 | PT.DAILY ---
Physical Therapy Daily Note PT Daily Note/Assess Start: 03/11/23 09:59 Freq: Status: Active Protocol: Document 03/11/23 09:59 OLU (Rec: 03/11/23 10:02 OLU [id number]) Physical Therapy Daily Note/Assessment Time In/Time Out Time In 09:05 Time Out 09:14 Pain In Pain N/A Pain Out Pain N/A Subjective Subjective Pt sitting in BS chair upon arrival. Agrees to PT. Planned dc home with HH today. Therapeutic Activity Time Therapeutic Activity Minutes (minutes) 8 Therapeutic Activity Units 1 Therapeutic Activity Treatment Chair Transfer Ability Minimum Assist Therapeutic Activity Comments Sit>stand from bed side chair Alexandrea. Pt amb 120' with RW, SUP with slower moreno. 1x standing rest break due to SOB . Pt needs to use restroom and wishes for privacy at this time. Pt left on toilet and nursing notified. Total Physical Therapy Time Total Therapy Minutes 8 Total Physical Therapy Units 1 Summary Daily Note Summary Able to increase distance with gait but does have SOB with this today. Session limited by pt needing to use restroom.
[2023-03-11 11:16] LABS: Glucometer 150 mg/dL (74-106)
--- NOTE | 2023-03-11 11:33 | PC.NURSE ---
RN went to take patient out to private vehicle for discharge. Patient was able to get his butt onto the seat (seat sits higher as it is a van) but did not have the strength to use his legs to push his butt back into the seat. Patient came close to slipping off of the seat and falling on the ground, if it were not for the RN and there to hold him up. expresses concerns that he will not be able to have the strength to get up the few small steps to get into the house. Patient safely assisted into wheelchair an brought back to room. Dr. Castaneda notified and agreed he needs rehab for strengthening.
[2023-03-11] MEDS: INSULIN ASPART 300 UNIT/3 ML PEN SUBQ (12:15)
--- NOTE | 2023-03-11 14:30 | PC.NURSE ---
While transferring a patient from ICU 270 to room 203 MS via wheelchair, A patient started yelling for help. As I entered room with TRAVIS Damon, 202 Patient (Brian Restrepo) was bending over his walker in the bathroom grabbing onto the sink. We were able to stabilize his balance. As Leonardo held the patient, I went to get a wheelchair. At this time [employer] Manisha joined us in the room with the wheelchair. The patient stated I can't move my leg I asked which leg he was referring to he said it was his right leg. Leonardo, Manisha, and I were able to lower the patient into the wheelchair and transfer him back to the recliner. Before sitting in the chair the patient stated that he was able to move his right light was fine now and while using the walker pivoted to the recliner. While sitting in the recliner Leonardo Dyer, and I educated the patient on using the call light and asking for help to transfer. [employer] Manisha provided the patient with the call light and I proceeded back to the ICU.
[2023-03-11 16:24] LABS: Glucometer 59 mg/dL (74-106)
[2023-03-11 17:55] LABS: Glucometer 91 mg/dL (74-106)
[2023-03-11 19:37] LABS: Glucometer 97 mg/dL (74-106)
--- NOTE | 2023-03-11 22:34 | XR_ITS ---
The [address] [address] Patient Name: DENNY BRADY MRN: [id number] date: 1960 Sex: M Assigned Patient Location: MS Current Patient Location: MS Accession/Order Number: [id number] Exam Date: 03/11/2023 22:55 Report Date: 03/12/2023 00:27 At the request of: JANNET MOON Procedure: XR hip RT min 2V XR hip RT min 2V: HISTORY: fall, pain entire spine fall, pain entire spine COMPARISON: None available. TECHNIQUE: 2 right hip views are submitted. FINDINGS: BONES/JOINT SPACES: There is a right hip prosthesis present. No obvious periprosthetic fractures are appreciated. There is some lucency along the proximal femoral prosthetic component which may represent loosening. There are no definitive acute osseous injuries in the visualized pelvis. SOFT TISSUES: The soft tissues are unremarkable. XR/XR hip RT min 2V IMPRESSION: Right hip prosthesis in place with potential loosening. No acute fractures are appreciated. Electronically authenticated by: TORRI ODOM Date: 03/12/2023 00:27
--- NOTE | 2023-03-11 22:34 | XR_ITS ---
The [address] [address] Patient Name: DENNY BRADY MRN: [id number] date: 1960 Sex: M Assigned Patient Location: MS Current Patient Location: MS Accession/Order Number: [id number] Exam Date: 03/11/2023 22:55 Report Date: 03/12/2023 00:29 At the request of: JANNET MOON Procedure: XR hip LT 2V w/ pelvis XR hip LT 2V w/ pelvis: HISTORY: fall, pain entire spine fall, pain entire spine COMPARISON: None available. TECHNIQUE: 3 views of the left hip and bony pelvis are submitted. FINDINGS: BONES/JOINT SPACES: No definitive acute fractures are appreciated in the left hip or bony pelvis. The right hip prosthesis is in place. There is moderate narrowing of the left hip joint. SOFT TISSUES: The soft tissues are unremarkable. XR/XR hip LT 2V w/ pelvis IMPRESSION: No definitive acute fracture is appreciated in the left hip or bony pelvis. Electronically authenticated by: TORRI ODOM Date: 03/12/2023 00:29
--- NOTE | 2023-03-11 22:34 | CT_ITS ---
The [address] [address] Patient Name: DENNY BRADY MRN: [id number] date: 1960 Sex: M Assigned Patient Location: MS Current Patient Location: MS Accession/Order Number: [id number] Exam Date: 03/11/2023 22:55 Report Date: 03/12/2023 00:26 At the request of: JANNET MOON Procedure: CT head/brain wo con EXAM: CT head/brain wo con, CT thoracic spine wo con HISTORY: fall hitting head COMPARISON: None. TECHNIQUE: Nonenhanced CT imaging of the head and thoracic spine with sagittal and coronal reconstructions. Dose reduction techniques were achieved by using automated exposure control and/or adjustment of mA and/or kV according to patient size and/or use of iterative reconstruction technique. FINDINGS: CT HEAD: No intracranial hemorrhage, edema, mass effect or midline shift is seen. The brain parenchyma, ventricles and extra-axial CSF spaces appear age-appropriate. The calvarium and imaged facial bones are intact. A benign osteoma is seen in the left ethmoid sinus on image 18 of series 3. Second smaller osteoma is suspected in the anterior left frontal sinus on image 20. Remaining paranasal sinuses are otherwise clear. The bilateral mastoid air cells are clear. CT THORACIC SPINE: There is an age-indeterminate moderate anterior T4 vertebral body compression fracture. This has smooth borders and appears nonacute. A milder T6 burst fracture is acute with surrounding paraspinal hematoma. There is no retropulsion of the posterior cortex or involvement of the posterior elements. No additional acute thoracic spine injury is seen. Remaining thoracic vertebral bodies are normal in height. The thoracic spine is normally aligned. The heart is mildly enlarged. Coronary arterial calcifications are present. There is streaky atelectasis or fibrotic scarring in both lower lobes. CT/CT head/brain wo con IMPRESSION: 1. No calvarial fracture or acute intracranial abnormality. 2. Acute T6 vertebral body burst fracture with surrounding paraspinal hematoma. No additional acute thoracic spine injury is seen. Moderate T4 anterior vertebral body compression fracture appears chronic. Electronically authenticated by: LILY HERNANDES Date: 03/12/2023 00:26
--- NOTE | 2023-03-11 22:57 | PC.NURSE ---
Patient assisted to bathroom with walker, non skid socks and engineering technical writer. Patient steady gait noted. Institution Director asked patient if he was okay in bathroom. Patient insisted to be left alone for privacy while in bathroom. Write exiting room and refilled water pitcher for patient. Upon re-entry to patient's room. Institution Director heard a loud thud and immediately entered bathroom to find patient laying supine head against the sink wall and legs extended facing toilet. Institution Director immediately called for assistance and a quick neuro assessment vital signs obtained while patient still in found position. Neuro's WNL except for patient unable to identify the year, pain to posterior base of neck, entire back, and asked to follow with eyes the right pupil noted nystagmus. Patient denied losing consciousness but reported feeling dizzy and lightheaded. Patient noted having audible wheezing and slight SOB respirations non-labored. Notified Dr. Interiano of patient falling in bathroom. Orders recieved for CT SANCHES/Brain, and XR of entire back. Patient assisted back to bed with tayla lift. First attempt failed d/t battery was not charged. Notified Marielena director by house registry rn Norma ROBLES of situation and what to do with non working tayla lift. Staff found a charged battery and placed it into lift. Now working tayla lift placed patient into bed and transported to xray department for test. Accompanied by Germain flight security specialist, Norma ROBLES material handling crew supervisor, Ginger ROBLES, and Estrella Norris RN. Patient leaving floor in stable condition. Vital signs b/p 133/49, P 79, Resp. 24, SPO2 92% on RA, Temp. 97.9.
--- NOTE | 2023-03-11 23:31 | CT_ITS ---
The [address] [address] Patient Name: DENNY BRADY MRN: [id number] date: 1960 Sex: M Assigned Patient Location: MS Current Patient Location: MS Accession/Order Number: [id number] Exam Date: 03/11/2023 22:55 Report Date: 03/12/2023 00:33 At the request of: JANNET MOON Procedure: CT cervical spine wo con EXAM: CT cervical spine wo con, CT lumbar spine wo con HISTORY: pain s/p fall. abnml xray COMPARISON: CT thoracic spine, 03/11/2023. TECHNIQUE: Nonenhanced CT imaging of the cervical and lumbar spine was performed with sagittal and coronal reconstructions. Dose reduction techniques were achieved by using automated exposure control and/or adjustment of mA and/or kV according to patient size and/or use of iterative reconstruction technique. FINDINGS: CT CERVICAL SPINE: There is some motion artifact degrading the exam. There is a mild anterior compression fracture involving the superior C4 vertebral body. Motion artifact degrades images at this level. However, this appears to have smooth margins and is likely nonacute. No convincing acute cervical spine injury is seen. Remaining cervical vertebral bodies are normal in height. The cervical spine is normally aligned. There is advanced degenerative disease at C4-C5 and C5-C6 with mild to moderate degenerative disc disease at C6-C7. Skull base alignment appears normal. The articular facets are normally aligned. There is moderate spinal canal stenosis and bilateral neural foraminal stenosis at C4-C5. The imaged sphenoid sinuses, mastoid air cells and lung apices appear clear. CT LUMBAR SPINE: There is some motion artifact degrading the exam. No acute lumbar spine fracture, compression deformity or spondylolisthesis is seen. Transitional anatomy noted, with 6 nonrib-bearing, lumbar-type vertebrae. The lumbar vertebral bodies are normal in height and alignment. Disc spaces are maintained. 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 Mild to moderate bilateral neural foraminal narrowing is seen at L5-L6 and L6-S1. No levels of spinal canal stenosis are seen. The sacrum and sacroiliac joints appear intact. There are dense aortic and iliac calcifications without aneurysm. There is dependent edema in the subcutaneous fat of the midline lower back without loculated fluid or soft tissue gas. CT/CT cervical spine wo con IMPRESSION: 1. Mild anterior compression fracture involving the superior C4 vertebral body is suboptimally evaluated due to motion artifact at this level but appears nonacute. However, the patient is focally tender at this level, MRI could further evaluate. 2. No acute lumbar spine findings. Chronic changes are described above. Please reference today's separately dictated CT thoracic spine report for additional findings. Electronically authenticated by: LILY HERNANDES Date: 03/12/2023 00:33
--- NOTE | 2023-03-11 23:31 | CT_ITS ---
The [address] [address] Patient Name: DENNY BRADY MRN: [id number] date: 1960 Sex: M Assigned Patient Location: MS Current Patient Location: Accession/Order Number: [id number] Exam Date: 03/11/2023 22:55 Report Date: 03/12/2023 00:33 At the request of: JANNET MOON Procedure: CT pelvis wo con EXAM: CT pelvis wo con HISTORY: The patient is a 62-year-old male, pain s/p fall. abnml xray COMPARISON: 11:11 PM. TECHNIQUE: CT images were obtained through the bony pelvis and both hips without intravenous contrast and reformatted in 2 dimensions. Dose reduction techniques were achieved by using automated exposure control and/or adjustment of mA and/or kV according to patient size and/or use of iterative reconstruction technique. FINDINGS: The initial pick remover view demonstrates a right total hip prosthesis with a grade cerclage cable. No periprosthetic fractures are seen within the right acetabulum or visualized portion of the proximal right femur. No fractures or cortical discontinuities are seen within the proximal left femur or elsewhere throughout the bony pelvis. There is severe osteoarthritic narrowing of the superior weightbearing surface of the right hip joint. The sacroiliac joints are maintained. The pubic symphysis is maintained. The soft tissue images demonstrate no abnormal fluid collections on this non-contrast enhanced study. CT/CT pelvis wo con IMPRESSION: No fractures or dislocations seen. Electronically authenticated by: KELLE MALDONADO Date: 03/12/2023 00:33
--- NOTE | 2023-03-11 23:31 | CT_ITS ---
The [address] [address] Patient Name: DENNY BRADY MRN: [id number] date: 1960 Sex: M Assigned Patient Location: MS Current Patient Location: MS Accession/Order Number: [id number] Exam Date: 03/11/2023 22:55 Report Date: 03/12/2023 00:26 At the request of: JANNET MOON Procedure: CT thoracic spine wo con EXAM: CT head/brain wo con, CT thoracic spine wo con HISTORY: fall hitting head COMPARISON: None. TECHNIQUE: Nonenhanced CT imaging of the head and thoracic spine with sagittal and coronal reconstructions. Dose reduction techniques were achieved by using automated exposure control and/or adjustment of mA and/or kV according to patient size and/or use of iterative reconstruction technique. FINDINGS: CT HEAD: No intracranial hemorrhage, edema, mass effect or midline shift is seen. The brain parenchyma, ventricles and extra-axial CSF spaces appear age-appropriate. The calvarium and imaged facial bones are intact. A benign osteoma is seen in the left ethmoid sinus on image 18 of series 3. Second smaller osteoma is suspected in the anterior left frontal sinus on image 20. Remaining paranasal sinuses are otherwise clear. The bilateral mastoid air cells are clear. CT THORACIC SPINE: There is an age-indeterminate moderate anterior T4 vertebral body compression fracture. This has smooth borders and appears nonacute. A milder T6 burst fracture is acute with surrounding paraspinal hematoma. There is no retropulsion of the posterior cortex or involvement of the posterior elements. No additional acute thoracic spine injury is seen. Remaining thoracic vertebral bodies are normal in height. The thoracic spine is normally aligned. The heart is mildly enlarged. Coronary arterial calcifications are present. There is streaky atelectasis or fibrotic scarring in both lower lobes. CT/CT thoracic spine wo con IMPRESSION: 1. No calvarial fracture or acute intracranial abnormality. 2. Acute T6 vertebral body burst fracture with surrounding paraspinal hematoma. No additional acute thoracic spine injury is seen. Moderate T4 anterior vertebral body compression fracture appears chronic. Electronically authenticated by: LILY HERNANDES Date: 03/12/2023 00:26
--- NOTE | 2023-03-11 23:31 | CT_ITS ---
The [address] [address] Patient Name: DENNY BRADY MRN: [id number] date: 1960 Sex: M Assigned Patient Location: MS Current Patient Location: MS Accession/Order Number: [id number] Exam Date: 03/11/2023 22:55 Report Date: 03/12/2023 00:33 At the request of: JANNET MOON Procedure: CT lumbar spine wo con EXAM: CT cervical spine wo con, CT lumbar spine wo con HISTORY: pain s/p fall. abnml xray COMPARISON: CT thoracic spine, 03/11/2023. TECHNIQUE: Nonenhanced CT imaging of the cervical and lumbar spine was performed with sagittal and coronal reconstructions. Dose reduction techniques were achieved by using automated exposure control and/or adjustment of mA and/or kV according to patient size and/or use of iterative reconstruction technique. FINDINGS: CT CERVICAL SPINE: There is some motion artifact degrading the exam. There is a mild anterior compression fracture involving the superior C4 vertebral body. Motion artifact degrades images at this level. However, this appears to have smooth margins and is likely nonacute. No convincing acute cervical spine injury is seen. Remaining cervical vertebral bodies are normal in height. The cervical spine is normally aligned. There is advanced degenerative disease at C4-C5 and C5-C6 with mild to moderate degenerative disc disease at C6-C7. Skull base alignment appears normal. The articular facets are normally aligned. There is moderate spinal canal stenosis and bilateral neural foraminal stenosis at C4-C5. The imaged sphenoid sinuses, mastoid air cells and lung apices appear clear. CT LUMBAR SPINE: There is some motion artifact degrading the exam. No acute lumbar spine fracture, compression deformity or spondylolisthesis is seen. Transitional anatomy noted, with 6 nonrib-bearing, lumbar-type vertebrae. The lumbar vertebral bodies are normal in height and alignment. Disc spaces are maintained. 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 Mild to moderate bilateral neural foraminal narrowing is seen at L5-L6 and L6-S1. No levels of spinal canal stenosis are seen. The sacrum and sacroiliac joints appear intact. There are dense aortic and iliac calcifications without aneurysm. There is dependent edema in the subcutaneous fat of the midline lower back without loculated fluid or soft tissue gas. CT/CT lumbar spine wo con IMPRESSION: 1. Mild anterior compression fracture involving the superior C4 vertebral body is suboptimally evaluated due to motion artifact at this level but appears nonacute. However, the patient is focally tender at this level, MRI could further evaluate. 2. No acute lumbar spine findings. Chronic changes are described above. Please reference today's separately dictated CT thoracic spine report for additional findings. Electronically authenticated by: LILY HERNANDES Date: 03/12/2023 00:33
[2023-03-12] VITALS (20 sets, daily range): BP systolic 94–124; BP diastolic 45–76; PULSE 68–83; RESP 17–28; TEMP 36.4–36.7; O2SAT 86–97
--- NOTE | 2023-03-12 00:08 | PM.EN ---
Event Note Event Note: Notified by nursing staff that patient sustained a fall this evening as he ambulated to the bathroom, subsequently hitting his head and back with severe pain thereafter. Initially ordered CT brain and x-ray of entire spine. Notified individualization was limited on x-ray with recommendation to obtain CT of entire spine which has been ordered. Patient was evaluated upon return back from imaging and continues to complain of severe back pain but is due for pain meds for which several pain meds already on his medication list. Discussed with patient with regards to bed rest as well as utilizing the urinol to which patient declined and preferred to have the Vinson. Long discussion with patient with regards to risk of infection with Vinson placement and strongly encouraged utilization of the urinal but patient continues to adamantly decline. CT studies reviewed. CT of the brain no acute process. CT cervical spine with mild compression fracture of C4 but suboptimal visualization due to motion artifact recommendation for consideration of possible MRI. CT thoracic spine confirms acute T6 vertebral body fracture with paraspinal hematoma, also noted T4 vertebral body compression fracture that appears to be chronic. CT lumbar spine and pelvis negative for fracture. X-ray of bilateral hips also negative for fracture, noted right hip prosthesis with potential loosening. Plan: Maintain strict bedrest overnight Vinson placement as patient adamantly refuses urinal. Benefits and risks of Vinson placement have been explained at length to patient and he expresses understanding of such Continue continue analgesics for pain control including Percocet, IV morphine as needed DC Toradol secondary to hematoma Will discuss with day team tomorrow as patient may benefit from possible orthospine eval or IR to assess if any role for potential intervention such as kyphoplasty vs conservative management with PT eval and assess if any benefit for possible back brace Monitor H&H closely. Hemoglobin 10.3 earlier today. Recheck CBC Patient would strongly benefit from rehab on discharge as previously planned per chart review
--- NOTE | 2023-03-12 00:43 | PC.NURSE ---
0020 Dr. Cordero visually laied eyes on patient after coming back from XR department. New orders obtained.
[2023-03-12] MEDS: METHYLPREDNISOLONE SOD SUCC PF 125 MG/2 ML VIAL IVP ×2 (01:00→05:28)
[2023-03-12] MEDS: KETOROLAC TROMETHAMINE 30 MG/ML VIAL IVP (01:00)
--- NOTE | 2023-03-12 02:18 | RESP.RT ---
2 lpm bleed in with bipap
--- NOTE | 2023-03-12 02:23 | PC.NURSE ---
patient no long exhibits nystagmus, but still can't recall correct year.
[2023-03-12 02:50] LABS: Hematocrit 29.9 % (42.0-54.0); Mean Corpuscular HGB Conc 30.1 g/dL (29.9-35.2); Mean Corpuscular Hemoglobin 25.9 pg (25.9-34.0); Mean Corpuscular Volume 86.2 fL (80.0-94.0); Mean Platelet Volume 11.8 fL (9.5-13.5); Platelet Count 139 10^3/uL (150-450); Red Blood Count 3.47 10^6/uL (4.70-6.10); Red Cell Distribution Width 16.7 % (11.0-15.0); White Blood Count 12.4 10^3/uL (4.0-11.0)
--- NOTE | 2023-03-12 03:28 | XR_ITS ---
[address] [address] Patient Name: DENNY BRADY MRN: [id number] date: 1960 Sex: M Assigned Patient Location: MS Current Patient Location: MS Accession/Order Number: [id number] Exam Date: 03/12/2023 03:33 Report Date: 03/12/2023 05:57 At the request of: JANNET MOON Procedure: XR chest 1V EXAM: XR chest 1V HISTORY: dyspnea hypoxia COMPARISON: Chest x-ray, 03/08/2023. TECHNIQUE: AP upright portable chest x-ray. FINDINGS: Cardiomegaly is stable. The mediastinal contour and pulmonary vascularity are within normal limits. Nonspecific obscuration of the left diaphragm may reflect suboptimal penetration of the left lung base versus underlying pleural fluid, atelectasis and/or infiltrate, unchanged. The lungs are well expanded and otherwise grossly clear. XR/XR chest 1V IMPRESSION: Nonspecific obscuration of the left diaphragm may reflect suboptimal penetration of the left lung base versus underlying pleural fluid, atelectasis and/or infiltrate, unchanged. The lungs appear otherwise clear. Electronically authenticated by: LILY HERNANDES Date: 03/12/2023 05:57
[2023-03-12 04:50] LABS: Basophils Percent Auto 0.1 % (0.2-2.0); Hematocrit 30.3 % (42.0-54.0); Hemoglobin 9.1 g/dL (14.0-18.0); Immature Granulocytes Abs Auto 0.37 10^3/uL (0.00-0.03); Immature Granulocytes Pct Auto 2.6 % (0.0-0.5); Lymphocytes Absolute Auto 0.5 10^3/uL (1.2-3.8); Lymphocytes Percent Auto 3.5 % (20.5-60.0); Mean Corpuscular Hemoglobin 25.9 pg (25.9-34.0); Mean Corpuscular Volume 86.3 fL (80.0-94.0); Mean Platelet Volume 12.3 fL (9.5-13.5); Monocytes Absolute Auto 0.6 10^3/uL (0.3-0.8); Monocytes Percent Auto 4.3 % (1.7-12.0); Neutrophils Absolute Auto 12.5 10^3/uL (1.4-6.5); Neutrophils Percent Auto 89.5 % (43.0-75.0); Platelet Count 149 10^3/uL (150-450); Red Blood Count 3.51 10^6/uL (4.70-6.10); Red Cell Distribution Width 16.9 % (11.0-15.0)
[2023-03-12 05:14] LABS: Magnesium 2.4 mg/dL (1.8-2.4)
[2023-03-12 05:28] LABS: Alanine Aminotransferase 59 U/L (16-63); Albumin Globulin Ratio 0.6; Albumin Level 2.1 g/dL (3.4-5.0); Alkaline Phosphatase 191 U/L (46-116); Anion Gap 14.8; Aspartate Amino Transferase 71 U/L (15-37); BUN Creatinine Ratio 30.5; Bilirubin Total 0.6 mg/dL (0.2-1.0); Calcium 8.1 mg/dL (8.5-10.1); Carbon Dioxide 24.6 mmol/L (21.0-32.0); Chloride 103 mmol/L (98-107); Estimated GFR (African America 19 (>=60); Estimated GFR (Non-African Ame 16 (>=60); Globulin 3.5 g/dL; Glucose 78 mg/dL (74-106); Potassium 4.4 mmol/L (3.5-5.1); Sodium 138 mmol/L (136-145); Total Protein 5.6 g/dL (6.4-8.2)
[2023-03-12] MEDS: ACETAMINOPHEN 500 MG TABLET 1000 MG PO (05:28)
[2023-03-12] MEDS: OMEPRAZOLE 40 MG CAPSULE.DR PO (05:29)
[2023-03-12] MEDS: IPRATROPIUM/ALBUTEROL SULFATE 3 ML AMPUL.NEB IH ×3 (05:36→17:18)
--- NOTE | 2023-03-12 05:54 | PC.NURSE ---
right slightly weaker then left
--- NOTE | 2023-03-12 06:32 | PC.NURSE ---
Patient noted sleeping by chart writer and during that time chart writer observed patient having episodes of having tremors then rigid and labored uneven respirations.
[2023-03-12 07:52] LABS: ABG PCO2 45.2 mmHg (35.0-45.0); Base Excess ABG -3.2 mmol/L (-2.0-2.0); PO2 ABG 34.5 mmHg (80.0-100.0); pH ABG 7.314 (7.350-7.450)
[2023-03-12 07:53] LABS: Allen Test POSITIVE (POSITIVE); Liters per Minute 2; O2 Mode NC; Oxygen Saturation ABG 55.7 %; Puncture Site RR
--- NOTE | 2023-03-12 08:00 | PC.NURSE ---
While transferring a patient from ICU to room 203 MS, A patient started yelling for help. As I entered room with 202 Patient (Brian Restrepo) was bending over his walker in the bathroom grabbing onto the sink.
[2023-03-12] MEDS: ALLOPURINOL 100 MG TABLET PO (09:25)
[2023-03-12] MEDS: CARVEDILOL 25 MG TABLET 37.5 MG PO (09:25)
[2023-03-12] MEDS: ATORVASTATIN CALCIUM 40 MG TABLET 80 MG PO (09:25)
[2023-03-12] MEDS: L. ACIDOPHILUS/L.BULGARICUS 1 PACKET GRAN.PACK PO (09:25)
[2023-03-12] MEDS: 0.9 % SODIUM CHLORIDE 1,000 ML 1000 ML IV ×3 (09:25→14:21)
[2023-03-12] MEDS: OXYCODONE HCL/ACETAMINOPHEN 5MG/325MG 1 TAB PO (09:25)
[2023-03-12] MEDS: SERTRALINE HCL 100 MG TABLET 150 MG PO (09:25)
[2023-03-12] MEDS: ORPHENADRINE 60 MG/ 2 ML VIAL IV (09:26)
[2023-03-12] MEDS: FERROUS SULFATE 325 MG TABLET PO (09:26)
[2023-03-12] MEDS: PREGABALIN 100 MG CAPSULE PO (09:26)
[2023-03-12] MEDS: OXYCODONE HCL 5 MG TABLET 2.5 MG PO (09:26)
[2023-03-12] MEDS: MONTELUKAST SODIUM 10 MG TABLET PO (09:26)
[2023-03-12] MEDS: TAMSULOSIN HCL 0.4 MG CAPSULE PO (09:26)
--- NOTE | 2023-03-12 10:46 | P.DS_ITS ---
DS: Providers Provider Date of admission: 03/09/23 07:56 Primary care physician: MARIAJOSE GAY Consults: 03/08/23 17:27 Occupational Therapy Eval and Treat Routine Reason for consultation: Only if needed for Rehab Has provider been notified: No Physical Therapy Eval and Treat Routine Reason for consultation: Eval and Treat Has provider been notified: No 03/09/23 07:56 Consult to Plate Slitter And Inspector Routine Reason for consult:: Usp Other reason:: placement if deemed appropriate by PT 03/09/23 07:58 Consult to Cardiology Routine Reason for consultation: cp Has provider been notified: No 03/10/23 Physical Therapy Eval and Treat Routine Reason for consultation: Weakness, Back Pain Has provider been notified: Yes DS: Diagnosis Discharge Diagnosis (1) Intractable back pain: (2) Muscle spasm: (3) Obesity: (4) A-fib: (5) Anemia: (6) COPD (chronic obstructive pulmonary disease): (7) Sleep apnea: (8) Chest pain: (9) CAD (coronary artery disease): Qualifiers: Coronary Disease-Associated Artery/Lesion type: [place] artery [place] vs. transplanted heart: [place] heart (10) Pulmonary hypertension: (11) Lymphedema: (12) Paroxysmal atrial fibrillation: (13) Hypertension: Plan Acute hypoxic respiratory failure requiring 4 L of supplemental oxygen-started on antibiotics yesterday secondary to the leukocytosis, white blood cell count is improved today. Able to wean his supplemental oxygen down to 3 L this morning. Chest x-ray was clear. CTA was done at last admission, and patient has been taking his anticoagulant so PE is unlikely. Most likely has acute exacerbation of COPD secondary to acute bronchitis Elevated BNP with possible acute combined congestive heart failure, rales in [place] ngs with increasing peripheral edema- Chest pain-somewhat reproducible but not his pain getting with ambulation. Thrombocytopenia Intractable low back pain- Bilateral lower extremity venous insufficiency versus lymphedema. Chronic kidney disease stage II Iron deficiency anemia History of hypomagnesemia Atrial fibrillation Hypertension IDDM Morbid obesity T6 burst fracture with hematoma DS: Summary Hospital Course Hospital Course: Patient presented to emergency room with increasing shortness of breath and intractable low back pain. Recent discharge. In ER found to have acute exacerbation of COPD with significant hypoxia with O2 saturations less than 88%, saturations did improve but required 4 L of supplemental oxygen. Patient was started on IV antibiotics, aerosol treatments, steroids. Over the first 24 hours he was able to be weaned off of his supplemental oxygen but significant dyspnea persisted. With failed outpatient treatment he was a kept 1 additional day. White blood cell count also initially elevated, improved yesterday but is back elevated today. I suspect this may be secondary to steroid use as patient overall condition is improving. Possible acute combined congestive heart failure with peripheral edema, rales on lungs and elevated BNP. BNP is improved today. Creatinine is significantly elevated this is likely secondary to diuresis from previous day. LFTs also elevated likely secondary to passive congestion. Mild hypothyroidism noted to monitor as an outpatient. Overall patient is improved today ambulating better. He has pain medications at home. He will be discharged home on steroids which should help his low back as well as the COPD. Medications see list. Follow-up with PCP next week. Patient is being discharged as outlined above but unable to get into the car. Readmitted. Overnight patient had a fall. No syncope no chest pain no shortness of breath with a just a fall. Head: Back pain. CT scan of head and spine all normal except for T6 burst fracture with hematoma. Patient on Eliquis. We held the Eliquis, discussed with neurosurgery, their recommendation was an MRI which we are unable to do based on patient's size. Other medical conditions that deteriorated were acute hypoxia secondary to unable to wear his BiPAP. As well as acute renal failure likely secondary to diuresis as well as Toradol administration. All nephrotoxic medications have been stopped all blood thinners have been stopped. Patient accepted for transfer at the [facility]. Time Spent with Patient Time attestation: Total time spent providing and/or coordinating discharge services: Exam Constitutional Vital Signs, click to edit/add: Last Vital Signs Temp 97.6 F 03/12/23 05:20 Pulse 74 03/12/23 09:56 Resp 18 03/12/23 05:36 BP 100/59 03/12/23 09:39 Pulse Ox 97 03/12/23 10:38 O2 Del Method Nasal Cannula 03/12/23 10:38 O2 Flow Rate 2 03/12/23 10:38 Documenting provider has reviewed patient's vital signs: yes Common normals: apparent distress and negative for healthy appearing General appearance: in distress; not comfortable Nutritional appearance: obese HENMT Common normals: moist oral mucous membranes Lymph Lymphatic: lymphedema Chest Common normals: inspection of chest normal; palpation of chest abnormal (Chest pain on palpation but he describes this is not the same chest pain he) Respiratory Common normals: abnormal respiratory effort, use of accessory muscles and not clear to ascultation bilaterally Auscultation: no rales, no rhonchi and no wheezes Cardio Common normals: regular rate Rhythm: regular rhythm GI Inspection: abnormal to inspection (Morbidly obese) Extremity Other: Bilateral lower extremity edema, worse than last visit DS: Data Data Completed and Pending Labs on day of discharge: Labs from last 24 hours 03/12/23 03/12/23 03/12/23 07:50 04:09 02:43 WBC 14.0 H 12.4 H RBC 3.51 L 3.47 L Hgb 9.1 L 9.0 L Hct 30.3 L 29.9 L MCV 86.3 86.2 MCH 25.9 25.9 MCHC 30.0 30.1 RDW 16.9 H 16.7 H Plt Count 149 L 139 L MPV 12.3 11.8 Neut % (Auto) 89.5 H Lymph % (Auto) 3.5 L [place] % (Auto) 4.3 Eos % (Auto) 0.0 L Baso % (Auto) 0.1 L Neut # (Auto) 12.5 H Lymph # (Auto) 0.5 L [place] # (Auto) 0.6 Eos # (Auto) 0.0 Baso # (Auto) 0.0 Abs Immat Gran (auto) 0.37 H Imm/Tot Granulo (auto) 2.6 H Puncture Site Rr ABG pH 7.314 L ABG pCO2 45.2 H ABG pO2 34.5 L ABG HCO3 23.0 ABG O2 Saturation 55.7 ABG Base Excess -3.2 L Angel[place] Test Positive O2 Liters/Min 2 Sodium 138 Potassium 4.4 Chloride 103 Carbon Dioxide 24.6 Anion Gap 14.8 BUN 117.0 H* Creatinine 3.84 H Est GFR ( Amer) 19 L Est GFR (Non-Af Amer) 16 L BUN/Creatinine Ratio 30.5 Glucose 78 Calcium 8.1 L Magnesium 2.4 Total Bilirubin 0.6 AST 71 H ALT 59 Alkaline Phosphatase 191 H NT-Pro-B Natriuret Pep 2085.0 H* Total Protein 5.6 L Albumin 2.1 L Globulin 3.5 Albumin/Globulin Ratio 0.6 POC Glucose 03/11/23 03/11/23 03/11/23 19:36 17:54 16:23 WBC RBC Hgb Hct MCV MCH MCHC RDW Plt Count MPV Neut % (Auto) Lymph % (Auto) [place] % (Auto) Eos % (Auto) Baso % (Auto) Neut # (Auto) Lymph # (Auto) [place] # (Auto) Eos # (Auto) Baso # (Auto) Abs Immat Gran (auto) Imm/Tot Granulo (auto) Puncture Site ABG pH ABG pCO2 ABG pO2 ABG HCO3 ABG O2 Saturation ABG Base Excess Angel[place] Test O2 Liters/Min Sodium Potassium Chloride Carbon Dioxide Anion Gap BUN Creatinine Est GFR ( Amer) Est GFR (Non-Af Amer) BUN/Creatinine Ratio Glucose Calcium Magnesium Total Bilirubin AST ALT Alkaline Phosphatase NT-Pro-B Natriuret Pep Total Protein Albumin Globulin Albumin/Globulin Ratio POC Glucose 97 91 59 L 03/11/23 11:15 WBC RBC Hgb Hct MCV MCH MCHC RDW Plt Count MPV Neut % (Auto) Lymph % (Auto) [place] % (Auto) Eos % (Auto) Baso % (Auto) Neut # (Auto) Lymph # (Auto) [place] # (Auto) Eos # (Auto) Baso # (Auto) Abs Immat Gran (auto) Imm/Tot Granulo (auto) Puncture Site ABG pH ABG pCO2 ABG pO2 ABG HCO3 ABG O2 Saturation ABG Base Excess [place] Test O2 Liters/Min Sodium Potassium Chloride Carbon Dioxide Anion Gap BUN Creatinine Est GFR ( Amer) Est GFR (Non-Af Amer) BUN/Creatinine Ratio Glucose Calcium Magnesium Total Bilirubin AST ALT Alkaline Phosphatase NT-Pro-B Natriuret Pep Total Protein Albumin Globulin Albumin/Globulin Ratio POC Glucose 150 H Discharge Plan Discharge Condition: Good Discharge Medications: New levofloxacin 750 mg tablet 750 mg PO Q24H 10 Days Qty: 10 0RF prednisone 10 mg tablet 50 mg PO DAILY Qty: 47 0RF Rx Instructions: 5/day for 3 days. 4/day for 3 days, 3/day for 3 days, 2/day for 3 days, 1/day for 3 days, 1/2 /day for 4 days Continued oxycodone-acetaminophen [Percocet] 7.5-325 mg tablet 1 tab PO BID PRN (Reason: pain) Qty: 60 0RF allopurinol 100 mg tablet 100 mg PO DAILY Eliquis 5 mg tablet 5 mg PO Q12H aspirin [Adult Aspirin Regimen] 81 mg tablet,delayed release (DR/EC) 81 mg PO DAILY bumetanide 1 mg tablet 1 mg PO DAILY clonidine HCl 0.2 mg tablet 0.2 mg PO TID carvedilol 25 mg tablet 37.5 mg PO Q12H ferrous sulfate [FeroSul] 325 mg (65 mg iron) tablet 325 mg PO BID tamsulosin 0.4 mg capsule 0.4 mg PO Q24H insulin glargine [Lantus U-100 Insulin] 100 unit/mL solution 44 unit subcut BID atorvastatin [Lipitor] 80 mg tablet 80 mg PO DAILY montelukast 10 mg tablet 10 mg PO DAILY Stiolto Respimat 2.5-2.5 mcg/actuation mist 2 puff INHALATION Q24H vitamin I92-koehjqqon factor 110-0.5 mg capsule 1 cap PO DAILY tizanidine 4 mg tablet 4 mg PO QDAY sertraline [Zoloft] 100 mg tablet 150 mg PO DAILY hydralazine 100 mg tablet 100 mg PO Q8H omeprazole 40 mg capsule,delayed release(DR/EC) 40 mg PO DAILY pregabalin 100 mg capsule 100 mg PO Q12H tizanidine 4 mg tablet 8 mg PO .QHS Rx Instructions: do not exceed 3 doses per 24 hrs Discontinued lisinopril 10 mg tablet 20 mg PO DAILY Activity: resume usual activities as tolerated Diet: advance to your usual diet Patient Instructions: Prednisone (By mouth), Levofloxacin (By mouth), COPD (Chronic Obstructive Pulmonary Disease) (DC) Forms: Portal Instructions Follow Up Appointments: Please call and schedule a follow up appt with Dr. Castaneda within one week [phone]
[2023-03-12 11:53] LABS: Glucometer 86 mg/dL (74-106)
[2023-03-12 12:15] LABS: Anion Gap 17.6; Calcium 7.9 mg/dL (8.5-10.1); Carbon Dioxide 20.2 mmol/L (21.0-32.0); Chloride 104 mmol/L (98-107); Estimated GFR (African America 18 (>=60); Estimated GFR (Non-African Ame 15 (>=60); Glucose 85 mg/dL (74-106); Potassium 4.8 mmol/L (3.5-5.1); Sodium 137 mmol/L (136-145)
[2023-03-12] MEDS: METHYLPREDNISOLONE SOD SUCC PF 125 MG/2 ML VIAL 60 MG IVP ×2 (12:42→18:12)
[2023-03-12 16:15] LABS: Glucometer 105 mg/dL (74-106)
--- NOTE | 2023-03-12 17:18 | RESP.RT ---
treatment given by RN
[2023-03-12 18:12] LABS: Anion Gap 17.7; BUN Creatinine Ratio 31.6; Calcium 7.4 mg/dL (8.5-10.1); Carbon Dioxide 21.1 mmol/L (21.0-32.0); Chloride 104 mmol/L (98-107); Estimated GFR (African America 18 (>=60); Estimated GFR (Non-African Ame 15 (>=60); Glucose 98 mg/dL (74-106); Potassium 4.8 mmol/L (3.5-5.1); Sodium 138 mmol/L (136-145)
[2023-03-12] MEDS: 0.9 % SODIUM CHLORIDE 1,000 ML 500 ML IV (18:12)
[2023-03-12 20:05] LABS: Glucometer 122 mg/dL (74-106)
== END 2023-03-12 20:20 | disposition short-term general hospital (02) | DRG 291 ==
LOC: ER 15:09 → MS 16:22
PROVIDERS: Internal Medicine; Physician Assistant; Admitting Provider Family Medicine; Emergency Provider Emergency Medicine; PCP Nurse Practitioner Family; Visit Provider Family Medicine
DX: I13.0 Hypertensive heart and chronic kidney disease with heart failure and stage 1 through stage 4 chronic kidney disease, or unspecified chronic kidney disease (principal); I50.41 Acute combined systolic (congestive) and diastolic (congestive) heart failure; S22.051A Stable burst fracture of T5-T6 vertebra, initial encounter for closed fracture; J96.01 Acute respiratory failure with hypoxia; J44.1 Chronic obstructive pulmonary disease with (acute) exacerbation; Z68.43 Body mass index [BMI] 50.0-59.9, adult; J44.0 Chronic obstructive pulmonary disease with (acute) lower respiratory infection; N17.9 Acute kidney failure, unspecified; W19.XXXA Unspecified fall, initial encounter; Y92.230 Patient room in hospital as the place of occurrence of the external cause; D72.829 Elevated white blood cell count, unspecified; T38.0X5A Adverse effect of glucocorticoids and synthetic analogues, initial encounter; M54.50 Low back pain, unspecified; M62.838 Other muscle spasm; G47.30 Sleep apnea, unspecified; J20.9 Acute bronchitis, unspecified; R07.9 Chest pain, unspecified; D69.6 Thrombocytopenia, unspecified; I89.0 Lymphedema, not elsewhere classified; N18.2 Chronic kidney disease, stage 2 (mild); D50.9 Iron deficiency anemia, unspecified; E11.22 Type 2 diabetes mellitus with diabetic chronic kidney disease; E66.01 Morbid (severe) obesity due to excess calories; I25.10 Atherosclerotic heart disease of native coronary artery without angina pectoris; N40.0 Benign prostatic hyperplasia without lower urinary tract symptoms; M79.7 Fibromyalgia; E78.00 Pure hypercholesterolemia, unspecified; I27.20 Pulmonary hypertension, unspecified; E03.9 Hypothyroidism, unspecified; Z96.641 Presence of right artificial hip joint; I48.0 Paroxysmal atrial fibrillation; Z79.01 Long term (current) use of anticoagulants; Z79.4 Long term (current) use of insulin; Z79.899 Other long term (current) drug therapy; Z88.0 Allergy status to penicillin; Z88.2 Allergy status to sulfonamides; Z88.8 Allergy status to other drugs, medicaments and biological substances; Z87.891 Personal history of nicotine dependence; Z96.611 Presence of right artificial shoulder joint
CPT/HCPCS: 36415; 36600; 51702; 70450; 71045; 72125; 72128; 72131; 72192; 73502; 80048; 80053; 81001; 82805; 82948; 83605; 83735; 83880; 84436; 84443; 84481; 84484; 85025; 85027; 87070; 87205; 93005; 93306; 94640; 94667; 94668; 94761; 96365; 96366; 96367; 96375; 96376; 97161; 97165; 97530; 97535; 99285; G0328; G0378; J2930; Q3014